=== PATIENT | male | born 1990 | race Caucasian/White ===

== ENCOUNTER 2021-08-25 18:35 | Emergency (ER) | payer OTHER, SELFPAY ==
--- NOTE | ~2021-08-25 | XR_ITS ---
EXAMINATION: XR HAND, RIGHT CLINICAL INFORMATION: Finger pain. COMPARISON: None TECHNIQUE: PA, lateral, and oblique views of the right hand. FINDINGS: The bones and soft tissues are normal. No fracture. Alignment is anatomic. Joint spaces are maintained. No erosions or soft tissue calcifications. XR/XR hand RT 2V IMPRESSION: Unremarkable right hand.
[2021-08-25 20:15] VITALS: BP 111/65; PULSE 60; RESP 18; TEMP 36.6; O2SAT 98; BMI 25.0
--- NOTE | 2021-08-25 21:07 | ED_ITS ---
HPI - Extremity Problem General Chief complaint: Extremity Problem Stated complaint: Hand pain Source: patient Mode of arrival: ambulatory Limitations: no limitations History of Present Illness HPI Narrative: 30-year-old male presents with right hand pain after punching a cement object yesterday. Does not have any bruising or swelling. MD Complaint: extremity pain Onset (ago): day(s) (1) Pain Consistency: constant Location: right and upper extremity Severity scale (1-10): 5 Quality: aching Radiation: none Relieving factors: nothing Exacerbating factors: range of motion Associated symptoms: denies other symptoms Related Data Allergies Allergy/AdvReac Type Severity Reaction Status Date / Time benztropine [From COGENTIN] Allergy Unknown UNKNOWN Unverified 06/07/20 17:46 haloperidol [From HALDOL] AdvReac Severe JAW LOCK Unverified 06/07/20 17:46 AND TONGUE SWELLING Review of Systems Review of Systems: Constitutional: No Fever, No Chills ENT/Mouth: No Ear Pain, No Hoarseness, No sore throat Eyes: No Eye Pain, No Swelling, No Redness, No Foreign Body Cardiovascular: No Chest Pain, No SOB Respiratory: No Cough, No Dyspnea Gastrointestinal: No Nausea, No Vomiting, No Diarrhea, No abdominal Pain Genitourinary: No Dysuria, No Hematuria Musculoskeletal: positive right hand pain, No Myalgias, No Joint Swelling Skin: No Skin lacerations, No rash Neuro: No Weakness, No Numbness, No Paresthesias, No Loss of Consciousness, No Dizziness, No Headache Psych: No Anxiety/Panic, No Depression Heme/Lymph: no easy bruising, no Lymphadenopathy Endocrine: No Polyuria, No Polydipsia Yes all other systems are reviewed and are negative [facility] Past Medical History Attestation statement: The following information was validated with the patient. Source: old records reviewed Medical History Asthma Social History Social History Advance Directives: No Advance Directives Information Provided: Yes Physical Exam Vital Signs: Vital Signs: Last Vital Signs Temp 98.8 F 08/25/21 22:00 Pulse 59 08/25/21 22:00 Resp 18 08/25/21 22:00 BP 116/49 L 08/25/21 22:00 Pulse Ox 97 08/25/21 22:00 BMI result Body Mass Index 25.0 Appearance: Alert. Oriented X3. No acute distress. Eyes: Pupils equal, round and reactive to light. ENT: Pharynx normal. Neck: Normal inspection. Neck supple. CVS: Normal heart rate and rhythm. Pulses normal. Respiratory: No respiratory distress. Breath sounds normal. Abdomen: Soft and nontender. Skin: Skin warm and dry. Normal skin color. Normal skin turgor. Extremities: No lower extremity edema. Full range of motion to all extremities. No swelling or bruising noted. Strength 5/5. Brisk capillary refill. Neurovascularly intact. Neuro: No motor deficit. No sensory deficit. Cranial nerves 2-12 intact. Course Course Course Narrative: 30-year-old male presents with right hand pain after punching a cement wall yesterday. No physical abnormalities, bruising or swelling noted. Has full range of motion and 5/5 strength. Patient is asking for food at this time. X-rays negative for acute findings requiring emergent intervention. Plan of care is to discharge home with supportive measures. Patient verbalized understanding of and agrees to plan of care discharge home. MDM - Extremity (Nontraumatic) MDM Narrative Medical decision making narrative: Fracture, dislocation, hematoma Medical Records Attestation: I reviewed the patient's medical records. Imaging Data Hand x-ray: Attestation: I personally reviewed and interpreted this imaging study as follows: Radiologist's impression: EXAMINATION: XR HAND, RIGHT CLINICAL INFORMATION: Finger pain.? COMPARISON: None? TECHNIQUE: PA, lateral, and oblique views of the right hand. FINDINGS: The bones and soft tissues are normal. No fracture. Alignment is anatomic. Joint spaces are maintained. No erosions or soft tissue calcifications.? XR/XR hand RT 2V IMPRESSION: Unremarkable right hand. Discharge Plan Discharge Clinical Impression: Hand injury Patient Disposition: Home, Self-Care Instructions: Hand Sprain (ED), R.I.C.E. Treatment (ED) Additional Instructions: You were evaluated for injury sustained from punching a cement object. X-rays are negative for fracture or acute findings. Please use ice, Tylenol and Motrin as needed for pain management. You should consider other alternatives to handle stress. Thank you for choosing this emergency department for evaluation. Please follow-up with primary care physician as needed. Return to the emergency department for any new, concerning, or worsening symptoms. Interventions: ED Discharge Assessment Last Done: 08/25/21 22:34 Discharge Date/Time: 08/25/21 22:36
[2021-08-25 22:00] VITALS: BP 116/49; PULSE 59; RESP 18; TEMP 37.1; O2SAT 97
--- NOTE | 2021-08-25 22:00 | PC.NURSE ---
patient a&ox3, vitals stable, pt awaiting xray results, will continue to monitor.
[2021-08-25] MEDS: Ibuprofen 600 MG TABLET PO (22:32)
--- NOTE | 2021-08-25 22:34 | PC.NURSE ---
pt medicated per order
== END 2021-08-25 22:36 | disposition home or self-care (01) ==
PROVIDERS: Emergency Provider Emergency Medicine
DX: S69.91XA Unspecified injury of right wrist, hand and finger(s), initial encounter (principal); X58.XXXA Exposure to other specified factors, initial encounter; Y93.9 Activity, unspecified; Y92.9 Unspecified place or not applicable; Y99.9 Unspecified external cause status
CPT/HCPCS: 73120; 99283; 99284

== ENCOUNTER 2021-09-05 07:30 | Emergency (ER) | payer OTHER, SELFPAY ==
--- NOTE | 2021-09-05 07:37 | ED.PSYCH ---
HPI - Psych General Chief Complaint: ETOH/Substance Use Stated Complaint: crisis Time Seen by Provider: 09/05/21 07:36 Source: patient Mode of arrival: ambulatory Limitations: no limitations History of Present Illness MD complaint: substance abuse Onset (ago): week(s) Duration: constant History of same: Yes Relieving factors: none Exacerbating factors: drug use Context: recent drug abuse Associated psychiatric symptoms: depression Associated symptoms: denies other symptoms Treatments prior to arrival: none Related Data Home Medications Medication Instructions Recorded Confirmed aripiprazole 20 mg tablet 1 tab PO QAM 09/05/21 09/05/21 lithium carbonate 300 mg tablet 1 tab PO BID 09/05/21 09/05/21 Allergies Allergy/AdvReac Type Severity Reaction Status Date / Time benztropine [From COGENTIN] Allergy Unknown UNKNOWN Unverified 06/07/20 17:46 haloperidol [From HALDOL] AdvReac Severe JAW LOCK Unverified 06/07/20 17:46 AND TONGUE SWELLING Review of Systems Review of Systems: Constitutional : No Fever, No Chills ENT/Mouth : No Ear Pain, No Nasal Congestion, No sore throat Eyes: No Eye Pain, No Swelling, No Redness Cardiovascular : No Chest Pain, No SOB Respiratory : No Cough, No Sputum, No Dyspnea Gastrointestinal : No Nausea, No Vomiting, No Diarrhea, No Hematochezia, No Melena Genitourinary : No Dysuria, No Urinary Frequency, No Hematuria Musculoskeletal : No Myalgias Skin : No Skin Lesions, No rash Neuro : No Weakness, No Numbness, No Paresthesias, No Dizziness, No Headache Psych : positive Anxiety, positive Depression, no SI/HI Heme/Lymph: No Lymphadenopathy Endocrine : No Polyuria, No Polydipsia All other systems reviewed and are negative [facility] Past Medical History Attestation statement: The following information was validated with the patient. Medical History Asthma Schizophrenia Social History Social History (Updated 09/05/21 @ 08:11 by Sakina Lewis DO) Patient Tobacco Use Status: Current everyday Tobacco user Substance Use Type: Crack/Cocaine Advance Directives: No Advance Directives Information Provided: No Physical Exam Vital Signs: Vital Signs: Last Vital Signs Temp 98.2 F 09/05/21 07:38 Pulse 86 09/05/21 07:38 Resp 18 09/05/21 07:38 BP 148/68 H 09/05/21 07:38 Pulse Ox 99 09/05/21 07:38 BMI result Body Mass Index 25.8 Appearance: Alert. Oriented X3. No acute distress. Eyes: Pupils equal, round and reactive to light. ENT: Pharynx normal. Neck: Normal inspection. Neck supple. CVS: Normal heart rate and rhythm. Pulses normal. Respiratory: No respiratory distress. Breath sounds normal. Abdomen: Soft and nontender. Skin: Skin warm and dry. Normal skin color. Extremities: No lower extremity edema. Neuro: Oriented X 3. No motor deficit. No sensory deficit. CN 2-12 intact Course Course Course Narrative: wants to go home, CARE team saw him plans to call his own mental health provider regarding his medications MDM - Psych MDM Narrative Medical decision making narrative: 30 yo male with schizophrenia using cocaine wants to go to detox - no SI. will offer recovery coaches. Lab Data Labs: Lab Results 09/05/21 09/05/21 Range/Units 08:06 09:39 Urine Opiates Screen Not Detected (Not Detect) Urine Fentanyl Screen POSITIVE H (Not Detect) Ur Barbiturates Screen Not Detected (Not Detect) Ur Phencyclidine Scrn Not Detected (Not Detect) Ur Amphetamines Screen Not Detected (Not Detect) U Benzodiazepines Scrn Not Detected (Not Detect) Urine Cocaine Screen POSITIVE H (Not Detect) U Marijuana (THC) Screen POSITIVE H (Not Detect) COVID-19 (FABIÁN) Negative (Negative) COVID-19 Clin Com See Note Discharge Plan Discharge Clinical Impression: Cocaine abuse Patient Disposition: Home, Self-Care Instructions: Cocaine Abuse (ED) Additional Instructions: return to ED for any worsening symptoms or concerns please call your doctor about your medications Prescriptions: No Action lithium carbonate 300 mg tablet 1 tab PO BID RF: 0 aripiprazole 20 mg tablet 1 tab PO QAM RF: 0
[2021-09-05 07:38] VITALS: BP 148/68; PULSE 86; RESP 18; TEMP 36.8; O2SAT 99; BMI 25.8
--- NOTE | 2021-09-05 07:53 | PC.NURSE ---
patient states has schizophrenia current with medications, smokes 1ppd cigarettes, reports cocaine and marijuana for drug use states using qday for 3 weeks, states having AH bad things (seemingly not command) periodically states feels unsafe. contracts for safety
[2021-09-05 08:32] LABS: COVID-19 Test Negative (Negative); IDNOW Serial# 9DD0AD1C
[2021-09-05] MEDS: Acetaminophen 325 MG TABLET 650 MG PO (09:30)
[2021-09-05 10:04] LABS: Amphetamine Screen Urine Not Detected (Not Detect); Barbiturates, Urine Not Detected (Not Detect); Benzodiazepines Screen Urine Not Detected (Not Detect); Cannabinoid Screen Urine POSITIVE (Not Detect); Cocaine Screen Urine POSITIVE (Not Detect); Fentanyl, urine POSITIVE (Not Detect); Opiate Screen Urine Not Detected (Not Detect); Phencyclidine Screen Urine Not Detected (Not Detect)
--- NOTE | 2021-09-05 10:51 | MHC.RECOVSUP ---
? Reason for consult:Recovery Support o Current location:[facility] o Identified substance use concern:Cocaine - Support ? Intervention: o Community resources provided o Harm reduction discussion ? Plan: o Patient to follow up with [facility] after discharge ? Additional information:Patient in denial as to whether he has a problem. He states: I just had a relapse . Pt. given community resources.
--- NOTE | 2021-09-05 11:09 | MHC.CARE ---
CARE Team met with patient in 7 after he requested be discharged, initially came to the ED seeking detox, has been using cocaine and cannabis. This morning he reported that he had a year of abstinence but relapsed due to family stress. Patient denied suicidal/homicidal ideation, plan or intention, did not appear to be experiencing psychosis, was calm and cooperative. Stated he talked to his father this morning about the drug use and said he gave him good advice about putting his children first. Patient had acknowledged that he has not taken psychiatric medications in a week, has providers through [facility] and was encouraged to reach out to the prescriber for advise about restarting the [facility] safely, patient said he feels the medication works and he wants to remain stable so would call today. Pulmonology Technician spoke with patient to offer community support services through [facility]. Provider updated
== END 2021-09-05 11:01 | disposition home or self-care (01) ==
PROVIDERS: Emergency Provider Emergency Medicine
DX: F14.10 Cocaine abuse, uncomplicated (principal); Z20.822 Contact with and (suspected) exposure to COVID-19; F20.9 Schizophrenia, unspecified; F17.200 Nicotine dependence, unspecified, uncomplicated; Z79.899 Other long term (current) drug therapy
CPT/HCPCS: 36415; 80307; 87635; 99284

== ENCOUNTER 2021-10-09 20:18 | Emergency (ER) | payer OTHER, SELFPAY ==
--- NOTE | 2021-10-09 | ECG_ITS ---
Test Reason : ANXIETY Blood Pressure : / mmHG Vent. Rate : 052 BPM Atrial Rate : 052 BPM P-R Int : 120 ms QRS Dur : 098 ms QT Int : 452 ms P-R-T Axes : 047 042 040 degrees QTc Int : 420 ms Sinus bradycardia with sinus arrhythmia Otherwise normal ECG When compared with ECG of 13-MAR-2011 12:36, No significant change was found Referred By: Generic ED Physician Electronically Signed By:Hansel Schuster
--- NOTE | ~2021-10-09 | XR_ITS ---
EXAMINATION: XR CHEST CLINICAL INFORMATION: Cough, shortness of breath, wheezing. COMPARISON: Chest radiograph dated from 03/12/2011. TECHNIQUE: AP view of the chest was obtained. FINDINGS: Normal appearance of the cardiomediastinal silhouette. Adequately expanded lungs without focal airspace opacities, pleural effusions or pneumothorax. No acute osseous abnormalities. XR/XR chest 1V IMPRESSION: No acute cardiopulmonary findings.
[2021-10-09 20:26] VITALS: BP 114/70; PULSE 70; O2SAT 99
[2021-10-09 20:43] VITALS: BP 123/72; PULSE 84; RESP 16; TEMP 36.7; O2SAT 100; BMI 25.0
[2021-10-09] MEDS: Albuterol Sulfate 90 MCG 8 GM INHALER 4 PUFF INHALE (21:24)
[2021-10-09 21:37] LABS: MANUAL DIFF FLAG NO
[2021-10-09 21:41] LABS: Basophils Percent Auto 0.2 % (0-2); Eosinophils Percent Auto 0.2 % (0-4); Hemoglobin 13.4 g/dl (14.0-18.0); Imm Gran Abs Auto 0.02 X10*3/uL (0.00-0.03); Imm Gran Pct Auto 0.4 % (0.0-0.4); Lymphocytes Absolute Auto 1.1 X10*3/uL (1.2-4.9); Lymphocytes Percent Auto 22.9 % (20-40); Mean Corpuscular HGB Conc 33.5 g/dl (31.0-36.0); Mean Corpuscular Hemoglobin 31.5 pg (27.0-33.0); Mean Corpuscular Volume 94.1 fL (80.0-98.0); Mean Platelet Volume 9.6 fL (9.4-12.4); Monocytes Absolute Auto 0.6 X10*3/uL (0.1-1.2); Monocytes Percent Auto 13.1 % (2-11); Neutrophils Percent Auto 63.2 % (45-73); Platelet Count 166 X10*3/uL (160-400); Red Blood Count 4.25 X10*6/uL (4.60-5.80); Red Cell Distribution Width 13.2 % (11.0-16.0); White Blood Count 4.7 X10*3/uL (4.8-10.8)
--- NOTE | 2021-10-09 21:42 | ED.GENADULT ---
HPI - General Adult General Chief complaint: Anxiety Stated complaint: HEADACHE AND CHEST PAIN Time Seen by Provider: 10/09/21 20:47 Source: patient and EMS Mode of arrival: EMS History of Present Illness HPI narrative: 30-year-old male with a past medical history of asthma, schizophrenia, BIBA and police custody s/p having anxiety attack in lockup per EMS, patient reports increased anxiety and CP/ SOB associated with anxiety when PD was arresting him. Reports symptomatic improvement at present with mild residual symptoms now. Reports similar symptoms in the past. Also admits to COVID-19 exposure, productive cough, and wheezing. States ran out of asthma medications 6 months ago. Denies fever, chills, abdominal pain, nausea/ vomiting, pedal edema Onset (ago): hour(s) Related Data Home Medications Medication Instructions Recorded Confirmed aripiprazole 20 mg tablet 1 tab PO QAM 09/05/21 09/05/21 lithium carbonate 300 mg tablet 1 tab PO BID 09/05/21 09/05/21 Previous Rx's Medication Instructions Recorded prednisone 20 mg tablet 40 mg PO DAILY 4 Days #8 tab 10/09/21 Allergies Allergy/AdvReac Type Severity Reaction Status Date / Time benztropine [From COGENTIN] Allergy Unknown UNKNOWN Verified 10/09/21 21:24 haloperidol [From HALDOL] AdvReac Severe JAW LOCK Verified 10/09/21 21:24 AND TONGUE SWELLING Review of Systems Review of Systems: Constitutional: No Fever, No Chills, No Fatigue, No Malaise ENT/Mouth: No Ear Pain, No Nasal Congestion, No sore throat, No Rhinorrhea, No Swallowing Difficulty Eyes: No Eye Pain, No Swelling, No Redness, Cardiovascular: + Chest Pain, + SOB, No Dyspnea on Exertion, No Edema Respiratory: + Cough, + Sputum, + Wheezing, No Smoke Exposure, No Dyspnea Gastrointestinal: No Nausea, No Vomiting, No Abdominal pain Genitourinary: No Dysuria, No Hesitancy Musculoskeletal: No joint pain, No Myalgias, No Joint Swelling Skin: No Skin Lesions, No rash Neuro: No Weakness, No Dizziness, No Headache Psych: + Anxiety/Panic, No Depression, No SI/HI/AH/VH, No Social Issues Yes all other systems are reviewed and are negative PMFSH Past Medical History Attestation statement: The following information was validated with the patient. Medical History Asthma Schizophrenia Social History Social History Patient Tobacco Use Status: Current everyday Tobacco user Substance Use Type: Crack/Cocaine Advance Directives: No Advance Directives Information Provided: Yes Physical Exam Vital Signs: Vital Signs: Last Vital Signs Temp 98.1 F 10/09/21 20:43 Pulse 87 10/09/21 22:00 Resp 18 10/09/21 22:00 BP 112/57 L 10/09/21 22:00 Pulse Ox 96 10/09/21 22:00 BMI result Body Mass Index 25.0 Const: General: cooperative, healthy appearing, no acute distress, alert and awake Orientation/consciousness: patient oriented x3 Limitations: no limitations HENMT: Head: Yes normal to inspection and Yes atraumatic Ears: hearing grossly normal bilaterally General nose exam: Normal external nose present Face and sinus: Yes normal facial exam Eyes: General: appearance normal, both eyes and all related structures EOM: EOMs intact bilaterally Neck: Neck: Yes normal visual inspection and Yes no meningeal signs Resp: Effort & Inspection: normal respiratory effort Auscultation: clear to auscultation bilaterally and wheezes expiratory wheezes and throughout Cardio: Rate: regular rate Heart sounds: S1 normal heart sound present and S2 normal heart sound present GI: Inspection: Yes normal to inspection Palpation (GI): Soft to palpation, nontender, no guarding and not rigid Skin: Rashes: no rashes Wounds: no wounds Neuro: General: patient oriented x3 and no meningeal signs Gait exam (Neuro): Normal gait present Extrem: General: Yes normal to inspection, Yes no pedal edema and Yes no calf tenderness Course Course Course Narrative: - labs unremarkable. Troponin negative. COVID-19 negative XR chest 1V IMPRESSION: No acute cardiopulmonary findings. -- On re-evaluation lungs with better air movement, slight residual wheeze to left lower lung field. Patient is safe for discharge at this time, was provided with albuterol inhaler in the ED, and given 1st dose of p.o. prednisone. Discussed worrisome signs and symptoms and strict return precautions that need a close follow-up with PCP. He verbalized understanding Medical Decision Making MDM Narrative Medical decision making narrative: 30-year-old male with a past medical history of asthma, schizophrenia, BIBA and police custody s/p having anxiety attack in lockup per EMS, patient reports increased anxiety and CP/ SOB associated with anxiety when PD was arresting him. Also admits to COVID-19 exposure, productive cough, and wheezing. On exam vital signs stable, NAD, nontoxic appearing, lungs with diffuse expiratory wheeze, good air movement, abdomen soft-nontender, no pedal edema. Concern for anxiety reaction vs asthma exacerbation vs COVID-19/viral syndrome.. Rule out pneumonia. Unlikely PE/ ACS Plan: EKG, labs, CXR, COVID-19 testing, [facility] Medical Records Medical records reviewed: Yes I reviewed the patient's medical records. Lab Data Lab results reviewed: Yes I reviewed the patient's lab results. Result diagrams: 10/09/21 21:31 10/09/21 21:31 Labs: Lab Results 10/09/21 10/09/21 10/09/21 Range/Units 21:31 21:31 21:31 WBC 4.7 L (4.8-10.8) X10*3/uL RBC 4.25 L (4.60-5.80) X10*6/uL Hgb 13.4 L (14.0-18.0) g/dl Hct 40.0 L (42.0-52.0) % MCV 94.1 (80.0-98.0) fL MCH 31.5 (27.0-33.0) pg MCHC 33.5 (31.0-36.0) g/dl RDW 13.2 (11.0-16.0) % Plt Count 166 (160-400) X10*3/uL MPV 9.6 (9.4-12.4) fL Immature Gran % (Auto) 0.4 (0.0-0.4) % Neut % (Auto) 63.2 (45-73) % Lymph % (Auto) 22.9 (20-40) % [place] % (Auto) 13.1 H (2-11) % Eos % (Auto) 0.2 (0-4) % Baso % (Auto) 0.2 (0-2) % Lymph # (Auto) 1.1 L (1.2-4.9) X10*3/uL [place] # (Auto) 0.6 (0.1-1.2) X10*3/uL Eos # (Auto) 0.0 (0.0-0.4) X10*3/uL Baso # (Auto) 0.0 (0.0-0.2) X10*3/uL Abs Immat Gran (auto) 0.02 (0.00-0.03) X10*3/uL Absolute Neuts (auto) 3.0 (2.0-8.3) x10*3/uL Absolute Nucleated RBC 0.000 (0.0-0.012) X10*3/uL Nucleated RBC % (auto) 0.0 (0.0-0.2) /100WBC Sodium 140 (135-145) mmol/L Potassium 4.3 (3.3-5.1) mmol/L Chloride 106 (96-108) mmol/L Carbon Dioxide 23 (22-29) mmol/L Anion Gap 15 (12-20) BUN 13 (9-16) mg/dL Creatinine 0.91 (0.5-1.4) mg/dL Estim Creat Clear Calc 116.9 Estimated GFR > 60 Random Glucose 97 (60-115) mg/dL Calcium 9.0 (8.4-10.2) mg/dL Troponin I High Sens (<3.5-35.0) ng/L COVID-19 (FABIÁN) Negative (Negative) COVID-19 Clin Com See Note 10/09/21 Range/Units 21:31 WBC (4.8-10.8) X10*3/uL RBC (4.60-5.80) X10*6/uL Hgb (14.0-18.0) g/dl Hct (42.0-52.0) % MCV (80.0-98.0) fL MCH (27.0-33.0) pg MCHC (31.0-36.0) g/dl RDW (11.0-16.0) % Plt Count (160-400) X10*3/uL MPV (9.4-12.4) fL Immature Gran % (Auto) (0.0-0.4) % Neut % (Auto) (45-73) % Lymph % (Auto) (20-40) % [place] % (Auto) (2-11) % Eos % (Auto) (0-4) % Baso % (Auto) (0-2) % Lymph # (Auto) (1.2-4.9) X10*3/uL [place] # (Auto) (0.1-1.2) X10*3/uL Eos # (Auto) (0.0-0.4) X10*3/uL Baso # (Auto) (0.0-0.2) X10*3/uL Abs Immat Gran (auto) (0.00-0.03) X10*3/uL Absolute Neuts (auto) (2.0-8.3) x10*3/uL Absolute Nucleated RBC (0.0-0.012) X10*3/uL Nucleated RBC % (auto) (0.0-0.2) /100WBC Sodium (135-145) mmol/L Potassium (3.3-5.1) mmol/L Chloride (96-108) mmol/L Carbon Dioxide (22-29) mmol/L Anion Gap (12-20) BUN (9-16) mg/dL Creatinine (0.5-1.4) mg/dL Estim Creat Clear Calc Estimated GFR Random Glucose (60-115) mg/dL Calcium (8.4-10.2) mg/dL Troponin I High Sens 4.4 (<3.5-35.0) ng/L COVID-19 (FABIÁN) (Negative) COVID-19 Clin Com ECG Data Attestation: I personally reviewed and interpreted this ECG as follows: Interpretation: EKG sinus Eleuterio at a rate of 52. MO interval 120. QTC 420. peaked T waves. No STEMI Discharge Plan Discharge Clinical Impression: Acute anxiety Asthma Qualifiers: Asthma severity: unspecified severity Asthma persistence: unspecified Asthma complication type: with acute exacerbation Qualified Code(s): J45.901 - Unspecified asthma with (acute) exacerbation Instructions: Asthma (ED), Anxiety (ED) Additional Instructions: your chest x-ray is unremarkable. You tested negative for COVID-19. your blood work is reassuring. you are having an asthma exacerbation. Prednisone as a steroid please take as prescribed Continue to use albuterol inhaler at home for your asthma. It is important that he follow up with her primary care doctor for refills of your medications. If her symptoms persist or worsen, constant worsening shortness of breath, chest pain, fever please turn to the ED Prescriptions: New prednisone 20 mg tablet 40 mg PO DAILY 4 Days Qty: 8 RF: 0 No Action lithium carbonate 300 mg tablet 1 tab PO BID RF: 0 aripiprazole 20 mg tablet 1 tab PO QAM RF: 0 Referrals: Physician,Unknown J [Primary Care Provider] - 2 days
[2021-10-09 21:52] LABS: COVID-19 Test Negative (Negative)
[2021-10-09 21:55] LABS: Anion Gap 15 (12-20); Blood Urea Nitrogen 13 mg/dL (9-16); Carbon Dioxide 23 mmol/L (22-29); Chloride 106 mmol/L (96-108); Creatinine Clr Calc Pharmacy 116.9; Estimated Glomerular Filt Rate > 60; Glucose Random 97 mg/dL (60-115); Potassium 4.3 mmol/L (3.3-5.1); Sodium 140 mmol/L (135-145)
[2021-10-09 22:00] VITALS: BP 112/57; PULSE 87; RESP 18; O2SAT 96
[2021-10-09 22:01] LABS: Troponin-I High Sensitivity 4.4 ng/L (<3.5-35.0)
[2021-10-09] MEDS: Albuterol/Iprat 2.5/0.5MG 3 ML AMPUL.NEB INHALE (22:19)
[2021-10-09] MEDS: predniSONE 20 MG TABLET 40 MG PO (22:45)
== END 2021-10-09 22:53 | disposition home or self-care (01) ==
PROVIDERS: Physician Assistant; Emergency Provider Internal Medicine
DX: F41.1 Generalized anxiety disorder (principal); F43.0 Acute stress reaction; J45.901 Unspecified asthma with (acute) exacerbation; R51.9 Headache, unspecified; F14.10 Cocaine abuse, uncomplicated; Z20.822 Contact with and (suspected) exposure to COVID-19; Z79.899 Other long term (current) drug therapy
CPT/HCPCS: 36415; 71045; 80048; 84484; 85025; 87635; 93005; 99284

== ENCOUNTER 2021-11-22 04:02 | Emergency (ER) | payer OTHER, SELFPAY ==
[2021-11-22 04:20] VITALS: BP 137/78; PULSE 95; RESP 18; TEMP 36.3; O2SAT 99; BMI 25.0
--- NOTE | 2021-11-22 04:26 | ED_ITS ---
HPI - General Adult General Chief complaint: General Medical Stated complaint: unknown - freezing Time Seen by Provider: 11/22/21 04:25 Source: patient and historical interpreter Mode of arrival: ambulatory History of Present Illness HPI narrative: Bilateral leg pain since 11/18/2021. Patient states burning sensation to bilateral lower extremities. He states that this pain is related to the cold and having to walk long distances because he is homeless. Related Data Home Medications Medication Instructions Recorded Confirmed aripiprazole 20 mg tablet 1 tab PO QAM 09/05/21 09/05/21 lithium carbonate 300 mg tablet 1 tab PO BID 09/05/21 09/05/21 Previous Rx's Medication Instructions Recorded prednisone 20 mg tablet 40 mg PO DAILY 4 Days #8 tab 10/09/21 Allergies Allergy/AdvReac Type Severity Reaction Status Date / Time benztropine [From COGENTIN] Allergy Unknown UNKNOWN Verified 11/22/21 04:20 haloperidol [From HALDOL] AdvReac Severe JAW LOCK Verified 11/22/21 04:20 AND TONGUE SWELLING Review of Systems Review of Systems: Pertinent positives and negatives as stated in HPI 10 point review of systems is otherwise negative. PMFSH Past Medical History Source: nursing notes reviewed Medical History Asthma Schizophrenia Social History Social History Patient Tobacco Use Status: Current everyday Tobacco user Substance Use Type: Crack/Cocaine Advance Directives: No Advance Directives Information Provided: Yes Physical Exam ED Vital Signs: Vital Signs - 24 hr 11/22/21 04:20 Temperature 97.4 F Pulse Rate 95 Respiratory Rate 18 Blood Pressure 137/78 Pulse Oximetry 99 BMI result Body Mass Index 25.0 Abbreviated due to patient deciding to leave and refusing to cooperate with further evaluation. VITAL SIGNS: Reviewed. GENERAL: Well developed, well nourished, in mild distress, restless, agitated HEAD: Normocephalic/atraumatic EYES: PERRLA, EOMI LUNGS: No tachypnea SpO2<99> CARDIOVASCULAR: Regular rate and rhythm without noted murmurs, no JVD or lower extremity edema. ABDOMEN: Soft, non-tender, non-distended with bowel sounds. MUSCULOSKELETAL: No tenderness, deformities, or effusions noted on gross insp ection. EXTREMITIES: No cyanosis, clubbing or edema, bilateral feet are warm with good capillary refill and palpable DP/PT; there is a noted ecchymotic area to the right posterior calf SKIN: Inspection of the skin reveals no rashes NEUROLOGIC: Alert and oriented x 4. Strength and sensation to light touch were grossly intact x 4. Course Course Course Narrative: 30-year-old male with history and clinical presentation consistent with burning sensation into all extremities no evidence of acute [place] bite, patient oxygenating well on room air and no noted tachypnea. Suspect patient is currently under the influence of substances and had reported the use of cocaine prior to arrival. Patient decided that he wanted to leave and did not wish to be further evaluated. Discharge Plan Discharge Clinical Impression: Bilateral leg paresthesia Patient Disposition: Home, Self-Care Instructions: Paresthesia (ED) Additional Instructions: Follow-up with your primary care provider. Return to the ER for worsening symptoms. Prescriptions: No Action lithium carbonate 300 mg tablet 1 tab PO BID 0RF aripiprazole 20 mg tablet 1 tab PO QAM 0RF prednisone 20 mg tablet 40 mg PO DAILY 4 Days Qty: 8 0RF Interventions: ED Discharge Assessment Last Done: 11/22/21 05:22 Discharge Date/Time: 11/22/21 05:35
--- NOTE | 2021-11-22 05:26 | PC.NURSE ---
pt yelling and threatening staff. pt turned to charge nurse Tulio stating you are so ugly just go fuck yourself pt continues to yell and threaten staff yelling I hate all white people pt is being escorted out by security.
== END 2021-11-22 05:35 | disposition home or self-care (01) ==
LOC: HO.ED 05:11
PROVIDERS: Emergency Provider Student in an Organized Health Care Education/Training Program
DX: R20.2 Paresthesia of skin (principal); F14.90 Cocaine use, unspecified, uncomplicated; F17.200 Nicotine dependence, unspecified, uncomplicated; Z71.6 Tobacco abuse counseling; Z79.899 Other long term (current) drug therapy
CPT/HCPCS: 99282; 99283

== ENCOUNTER 2021-11-25 01:54 | Emergency (ER) | payer OTHER, SELFPAY ==
[2021-11-25 02:02] VITALS: BP 158/82; PULSE 72; RESP 16; TEMP 36.9; O2SAT 96; BMI 24.3
[2021-11-25 02:34] LABS: Basophils Percent Auto 0.3 % (0-2); Eosinophils Percent Auto 0.1 % (0-4); Hematocrit 38.3 % (42.0-52.0); Hemoglobin 12.8 g/dl (14.0-18.0); Imm Gran Abs Auto 0.02 X10*3/uL (0.00-0.03); Imm Gran Pct Auto 0.3 % (0.0-0.4); Lymphocytes Absolute Auto 1.4 X10*3/uL (1.2-4.9); Lymphocytes Percent Auto 20.4 % (20-40); MANUAL DIFF FLAG NO; Mean Corpuscular HGB Conc 33.4 g/dl (31.0-36.0); Mean Corpuscular Hemoglobin 31.3 pg (27.0-33.0); Mean Corpuscular Volume 93.6 fL (80.0-98.0); Monocytes Absolute Auto 0.5 X10*3/uL (0.1-1.2); Monocytes Percent Auto 7.1 % (2-11); Neutrophils Percent Auto 71.8 % (45-73); Platelet Count 317 X10*3/uL (160-400); Red Blood Count 4.09 X10*6/uL (4.60-5.80); Red Cell Distribution Width 13.5 % (11.0-16.0); White Blood Count 6.9 X10*3/uL (4.8-10.8)
[2021-11-25 02:52] LABS: Ethanol < 10 mg/dL
[2021-11-25 02:53] LABS: COVID-19 Test Negative (Negative)
[2021-11-25 02:54] LABS: Anion Gap 14 (12-20); Blood Urea Nitrogen 12 mg/dL (9-16); Calcium 9.1 mg/dL (8.4-10.2); Carbon Dioxide 27 mmol/L (22-29); Chloride 101 mmol/L (96-108); Creatinine Clr Calc Pharmacy 137.4; Estimated Glomerular Filt Rate > 60; Glucose Random 96 mg/dL (60-115); Potassium 3.9 mmol/L (3.3-5.1); Sodium 138 mmol/L (135-145)
--- NOTE | 2021-11-25 02:56 | ED_ITS ---
HPI - Psych General Chief Complaint: Psychiatric Symptoms Stated Complaint: Crisis Time Seen by Provider: 11/25/21 02:56 Source: patient Mode of arrival: EMS History of Present Illness HPI Narrative: 30-year-old male with history anxiety, cocaine abuse who presents via EMS after being asks to leave the [facility] due to medication noncompliance and alcohol use. Patient states that he feels unsafe . Related Data Home Medications Medication Instructions Recorded Confirmed aripiprazole 20 mg tablet 1 tab PO QAM 09/05/21 11/25/21 lithium carbonate 300 mg tablet 1 tab PO BID 09/05/21 11/25/21 Allergies Allergy/AdvReac Type Severity Reaction Status Date / Time benztropine [From COGENTIN] Allergy Unknown UNKNOWN Verified 11/22/21 04:20 haloperidol [From HALDOL] AdvReac Severe JAW LOCK Verified 11/22/21 04:20 AND TONGUE SWELLING Review of Systems Review of Systems: Pertinent positives and negatives as stated in HPI 10 poi nt review of systems otherwise negative. PMFSH Past Medical History Source: nursing notes reviewed Medical History Asthma Schizophrenia Social History Social History Patient Tobacco Use Status: Current everyday Tobacco user Substance Use Type: Crack/Cocaine Advance Directives: No Advance Directives Information Provided: No Physical Exam Vital Signs: Vital Signs: Last Vital Signs Temp 98.5 F 11/25/21 02:02 Pulse 72 11/25/21 02:02 Resp 16 11/25/21 02:02 BP 158/82 H 11/25/21 02:02 Pulse Ox 96 11/25/21 02:02 BMI result Body Mass Index 24.3 VITAL SIGNS: Reviewed. GENERAL: Well developed, well nourished, in no acute distress. HEAD: Normocephalic/atraumatic EYES: PERRLA, EOMI OROPHARYNX: no oral lesions noted, posterior pharynx clear LUNGS: Normal breath sounds. No adventitious sounds or accessory muscle use. SpO2<96> CARDIOVASCULAR: Regular rate and rhythm without noted murmurs ABDOMEN: Soft, non-tender, non-distended with bowel sounds. NEUROLOGIC: Alert and oriented x 4. Strength and sensation to light touch were grossly intact x 4 , cranial nerves 2-12 are grossly intact. Course Course Course Narrative: 30-year-old male with history and clinical presentation consistent with polysubstance abuse and use. Patient is otherwise medically cleared for further evaluation by the behavioral team. Reevaluation(s) Reevaluation #1: Patient placed in physician observation because the patient needed more time for evaluation by the behavioral team. At the time observation was started the patient's vital signs were stable, patient is arousable and oriented, neuro: Nonfocal, CV RRR, lungs clear Time: 08:50 MDM - Psych Lab Data Result diagrams: 11/25/21 02:27 11/25/21 02:27 Labs: Lab Results 11/25/21 11/25/21 11/25/21 Range/Units 02:12 02:27 02:27 WBC (4.8-10.8) X10*3/uL RBC (4.60-5.80) X10*6/uL Hgb (14.0-18.0) g/dl Hct (42.0-52.0) % MCV (80.0-98.0) fL MCH (27.0-33.0) pg MCHC (31.0-36.0) g/dl RDW (11.0-16.0) % Plt Count (160-400) X10*3/uL MPV (9.4-12.4) fL Immature Gran % (Auto) (0.0-0.4) % Neut % (Auto) (45-73) % Lymph % (Auto) (20-40) % Hettinger % (Auto) (2-11) % Eos % (Auto) (0-4) % Baso % (Auto) (0-2) % Lymph # (Auto) (1.2-4.9) X10*3/uL [place]ting[place] # (Auto) (0.1-1.2) X10*3/uL Eos # (Auto) (0.0-0.4) X10*3/uL Baso # (Auto) (0.0-0.2) X10*3/uL Abs Immat Gran (auto) (0.00-0.03) X10*3/uL Absolute Neuts (auto) (2.0-8.3) x10*3/uL Absolute Nucleated RBC (0.0-0.012) X10*3/uL Nucleated RBC % (auto) (0.0-0.2) /100WBC Sodium (135-145) mmol/L Potassium (3.3-5.1) mmol/L Chloride (96-108) mmol/L Carbon Dioxide (22-29) mmol/L Anion Gap (12-20) BUN (9-16) mg/dL Creatinine (0.5-1.4) mg/dL Estim Creat Clear Calc Estimated GFR Random Glucose (60-115) mg/dL Calcium (8.4-10.2) mg/dL Urine Opiates Screen (Not Detect) Urine Fentanyl Screen (Not Detect) Ur Barbiturates Screen (Not Detect) Ur Phencyclidine Scrn (Not Detect) Ur Amphetamines Screen (Not Detect) U Benzodiazepines Scrn (Not Detect) [place] < 0.10 L (0.60-1.20) mmol/L Urine Cocaine Screen (Not Detect) U Marijuana (THC) Screen (Not Detect) Ethyl Alcohol < 10 mg/dL COVID-19 (FABIÁN) Negative (Negative) COVID-19 Clin Com See Note 11/25/21 11/25/21 11/25/21 Range/Units 02:27 02:27 04:05 WBC 6.9 (4.8-10.8) X10*3/uL RBC 4.09 L (4.60-5.80) X10*6/uL Hgb 12.8 L (14.0-18.0) g/dl Hct 38.3 L (42.0-52.0) % MCV 93.6 (80.0-98.0) fL MCH 31.3 (27.0-33.0) pg MCHC 33.4 (31.0-36.0) g/dl RDW 13.5 (11.0-16.0) % Plt Count 317 D (160-400) X10*3/uL MPV 9.0 L (9.4-12.4) fL Immature Gran % (Auto) 0.3 (0.0-0.4) % Neut % (Auto) 71.8 (45-73) % Lymph % (Auto) 20.4 (20-40) % [place] % (Auto) 7.1 (2-11) % Eos % (Auto) 0.1 (0-4) % Baso % (Auto) 0.3 (0-2) % Lymph # (Auto) 1.4 (1.2-4.9) X10*3/uL [place] # (Auto) 0.5 (0.1-1.2) X10*3/uL Eos # (Auto) 0.0 (0.0-0.4) X10*3/uL Baso # (Auto) 0.0 (0.0-0.2) X10*3/uL Abs Immat Gran (auto) 0.02 (0.00-0.03) X10*3/uL Absolute Neuts (auto) 5.0 (2.0-8.3) x10*3/uL Absolute Nucleated RBC 0.000 (0.0-0.012) X10*3/uL Nucleated RBC % (auto) 0.0 (0.0-0.2) /100WBC Sodium 138 (135-145) mmol/L Potassium 3.9 (3.3-5.1) mmol/L Chloride 101 (96-108) mmol/L Carbon Dioxide 27 (22-29) mmol/L Anion Gap 14 (12-20) BUN 12 (9-16) mg/dL Creatinine 0.80 (0.5-1.4) mg/dL Estim Creat Clear Calc 137.4 Estimated GFR > 60 Random Glucose 96 (60-115) mg/dL Calcium 9.1 (8.4-10.2) mg/dL Urine Opiates Screen Not Detected (Not Detect) Urine Fentanyl Screen Not Detected (Not Detect) Ur Barbiturates Screen Not Detected (Not Detect) Ur Phencyclidine Scrn Not Detected (Not Detect) Ur Amphetamines Screen Not Detected (Not Detect) U Benzodiazepines Scrn Not Detected (Not Detect) [place] (0.60-1.20) mmol/L Urine Cocaine Screen POSITIVE H (Not Detect) U Marijuana (THC) Screen POSITIVE H (Not Detect) Ethyl Alcohol mg/dL COVID-19 (FABIÁN) (Negative) COVID-19 Clin Com Discharge Plan Discharge Clinical Impression: Depression, Anxiety Patient Disposition: Still a Patient Prescriptions: No Action lithium carbonate 300 mg tablet 1 tab PO BID 0RF aripiprazole 20 mg tablet 1 tab PO QAM 0RF
[2021-11-25 03:03] LABS: Lithium < 0.10 mmol/L (0.60-1.20)
[2021-11-25 04:32] LABS: Amphetamine Screen Urine Not Detected (Not Detect); Barbiturates, Urine Not Detected (Not Detect); Benzodiazepines Screen Urine Not Detected (Not Detect); Cannabinoid Screen Urine POSITIVE (Not Detect); Cocaine Screen Urine POSITIVE (Not Detect); Fentanyl, urine Not Detected (Not Detect); Opiate Screen Urine Not Detected (Not Detect); Phencyclidine Screen Urine Not Detected (Not Detect)
--- NOTE | 2021-11-25 06:35 | PC.NURSE ---
Patient slept through the night, no distress observed/reported, behavior appropriate, med rec completed/pending provider's approval, behavior appropriate and non concerning at this time, [facility] referral completed/confirmed pending ETA, will continue to monitor.
--- NOTE | 2021-11-25 11:15 | MHC.CARE ---
Patient asking to be discharged, CARE Team met with him for a risk assessment. He stated that he is not suicidal and denied saying so last night, reported he was cold and needed a place to go and added that if he did need any help he would ask for it. [place] level was .10 and patient acknowledged that he missed doses for the last two days and his prescription is at [facility], has not picked it up yet. At this time patient does not appear to be in a crisis, in agreement to meet with Recovery Team for additional resources. Call to Receiving Room Clerk Pedro Koch ([phone]), he has heard from patient and was planning to come to the ED today to meet with him. Advised that patient is being discharged, SW will come rock picker patient in one hour and bring him to get the prescription. ED provider, Akil Anguiano updated and in agreement with plan to discharge.
--- NOTE | 2021-11-25 12:07 | MHC.RECOVSUP ---
Recovery Support note: Patient is a 30 year old [place]ian speaking male who was referred to this scenario writer by the CARE Team. This scenario writer met with patient to discuss his substance use and recovery supports. Patient reports he left [facility] in [place] on 11/06/21. Patient reports he last used cocaine a couple days ago and that he uses about once a month on average. Patient reports a desire to stop using entirely. Discussed recovery supports with patient. Patient is interested in going to meetings and getting connected with a recovery room rn. This scenario writer will refer patient to a recovery room rn for ongoing recovery support after discharge. Discussed case with CARE Team and ED provider.
--- NOTE | 2021-11-26 12:00 | MHC.CARE ---
CARE Team attempted to contact pt for the purpose of conducting a follow up call.? The phone number in pt?s chart was not a working number.? CARE Team contacted pt?s social media marketer Mr. Pedro Koch who stated he did not have pt?s number and that pt is ?Constantly changing numbers.?? CARE Team attempts to contact pt?s Father Garrett but are unsuccessful in doing so.
== END 2021-11-25 12:10 | disposition home or self-care (01) ==
PROVIDERS: Emergency Provider Student in an Organized Health Care Education/Training Program
DX: F32.A Depression, unspecified (principal); F41.9 Anxiety disorder, unspecified; F14.10 Cocaine abuse, uncomplicated; F12.10 Cannabis abuse, uncomplicated; F20.9 Schizophrenia, unspecified; F17.200 Nicotine dependence, unspecified, uncomplicated; Z79.899 Other long term (current) drug therapy; Z20.822 Contact with and (suspected) exposure to COVID-19
CPT/HCPCS: 36415; 80048; 80178; 80307; 82077; 85025; 87635; 99284

== ENCOUNTER 2021-11-28 02:47 | Emergency (ER) | payer OTHER, SELFPAY ==
[2021-11-28 02:54] VITALS: BP 142/73; PULSE 79; RESP 18; TEMP 36.8; O2SAT 97; BMI 25.0
[2021-11-28 03:12] VITALS: BP 137/77; PULSE 105; RESP 14; TEMP 37.1; O2SAT 97
--- NOTE | 2021-11-28 03:47 | ED_ITS ---
HPI - General Adult General Chief complaint: Extremity Problem Stated complaint: R leg pain Time Seen by Provider: 11/28/21 03:44 Source: patient Mode of arrival: ambulatory Limitations: no limitations History of Present Illness HPI narrative: 30-year-old male history of polysubstance abuse and alcohol abuse, patient stated that he is homeless no place to go came in for bilateral leg pain. Patient stated he has been walking in the street in the cold weather. Patient declined chest pain or shortness of breath, patient appear under influence of drugs in the ED. Unable to obtain full history from the patient. Related Data Home Medications Medication Instructions Recorded Confirmed aripiprazole 20 mg tablet 1 tab PO QAM 09/05/21 11/28/21 lithium carbonate 300 mg tablet 1 tab PO BID 09/05/21 11/28/21 Allergies Allergy/AdvReac Type Severity Reaction Status Date / Time benztropine [From COGENTIN] Allergy Unknown UNKNOWN Verified 11/22/21 04:20 haloperidol [From HALDOL] AdvReac Severe JAW LOCK Verified 11/22/21 04:20 AND TONGUE SWELLING Review of Systems Review of Systems: All other systems are reviewed and are negative Constitutional: Reports as per HPI and Reports no additional constitutional co mplaints Eyes: Reports as per HPI and Reports no additional eye complaints Reports system reviewed and no additional complaints, except as documented Cardiovascular: Reports as per HPI and Reports no additional cardiovascular complaints Respiratory: Reports as per HPI and Reports no additional respiratory complaints Gastrointestinal: Reports as per HPI and Reports no additional gastrointestinal complaints Genitourinary: Reports no additional female genitourinary complaints Musculoskeletal: Reports no additional musculoskeletal complaints Skin/Breast: Reports system reviewed and no additional complaints, except as docu Psychiatric: Reports no additional psychiatric complaints Endocrine: Reports no additional endocrine complaints Hematologic/Lymphatic: Reports no additional hematologic/lymphatic complaints Allergic/Immunologic: Reports no additional allergic/immunologic complaints Reports system reviewed and no additional complaints, except as documented and Reports Abnormal speech present [facility] Past Medical History Medical History Asthma Schizophrenia Social History Social History Alcohol intake: unknown Patient Tobacco Use Status: Tobacco use Unknown Use of substances other than those prescribed or required for medical reasons: Unknown Substance Use Type: Crack/Cocaine Advance Directives: No Physical Exam ED Vital Signs: Vital Signs - 24 hr 11/28/21 02:54 11/28/21 03:12 Temperature 98.3 F 98.7 F Pulse Rate 79 105 H Respiratory Rate 18 14 Blood Pressure 142/73 H 137/77 Pulse Oximetry 97 97 BMI result Body Mass Index 25.0 Vital signs have been reviewed as appeared to be correct. Blood pressure normal. Heart rate normal. Respiration rate normal. Temperature normal. Oxygen saturation normal. Appearance: Disheveled, no acute distress. Head: Normal external exam. Normocephalic. Atraumatic. No Fajardo signs noted. No raccoon eyes noted Eyes: PERRLA. EOMI. Conjunctiva and sclera normal. Eyelids normal. ENT: TM's Normal. Pharynx normal. Uvula midline. Moist mucous membranes. No trismus noted. No drooling noted. No muffled voice noted. Neck: Normal inspection. Neck supple. FROM. No adenopathy. Thyroid Normal. No meningeal signs. No neck mass noted. CVS: Normal heart rate and rhythm. Heart sound normal. No murmurs noted. Pulses normal throughout. Respiratory: No respiratory distress. Painless inspiration. Breath sounds normal. No wheezes/rales/rhonchi noted. Chest nontender. No accessory muscle usage noted or decreased air movement noted. Abdomen: Soft and nontender. Bowel sounds normal in all 4 quadrants. No distention noted. No organomegaly noted. No visible injury noted. Back: No CVA tenderness. Full range of motion noted. Skin: Skin warm and dry. Normal skin color. Normal skin turgor. No rashes/lesions/lacerations noted. Extremities: No lower extremity edema. Extremities exhibit normal range of motion. Extremities nontender. Neuro: Oriented X 3. Cranial nerve exam: II-XII are grossly intact No motor deficit. No sensory deficit. Reflexes normal. Course Course Course Narrative: Assessment and plan. 30-year-old male with history of polysubstance abuse and alcohol abuse, as per patient currently is homeless patient mainly came in for bilateral lower extremities pain patient stated he has been walking in the street as he is homeless, patient currently declined any HI or SI but appears to be tired and wanted to sleep. Patient had few ED visit in the past couple days likely because patient has no place to go at night especially when it is cold, patient also been evaluated by care team and was cleared to be discharged out of the hospital. Patient has unremarkable labs, CPK is unremarkable, D-dimer is also unremarkable , no apparent infectious process going on in the lower extremities. Patient will be safe to discharge home in the a.m. Medical Decision Making Medical Records Medical records reviewed: Yes I reviewed the patient's medical records. Lab Data Lab results reviewed: Yes I reviewed the patient's lab results. Result diagrams: 11/28/21 03:59 11/28/21 03:59 Labs: Lab Results 11/28/21 11/28/21 11/28/21 Range/Units 03:59 03:59 03:59 WBC 7.6 (4.8-10.8) X10*3/uL RBC 4.18 L (4.60-5.80) X10*6/uL Hgb 13.0 L (14.0-18.0) g/dl Hct 39.8 L (42.0-52.0) % MCV 95.2 (80.0-98.0) fL MCH 31.1 (27.0-33.0) pg MCHC 32.7 (31.0-36.0) g/dl RDW 13.4 (11.0-16.0) % Plt Count 324 (160-400) X10*3/uL MPV 9.0 L (9.4-12.4) fL Immature Gran % (Auto) 0.3 (0.0-0.4) % Neut % (Auto) 69.3 (45-73) % Lymph % (Auto) 20.3 (20-40) % [place] % (Auto) 8.9 (2-11) % Eos % (Auto) 0.8 (0-4) % Baso % (Auto) 0.4 (0-2) % Lymph # (Auto) 1.5 (1.2-4.9) X10*3/uL [place] # (Auto) 0.7 (0.1-1.2) X10*3/uL Eos # (Auto) 0.1 (0.0-0.4) X10*3/uL Baso # (Auto) 0.0 (0.0-0.2) X10*3/uL Abs Immat Gran (auto) 0.02 (0.00-0.03) X10*3/uL Absolute Neuts (auto) 5.3 (2.0-8.3) x10*3/uL Absolute Nucleated RBC 0.000 (0.0-0.012) X10*3/uL Nucleated RBC % (auto) 0.0 (0.0-0.2) /100WBC D-Dimer High Sensitivty < 150 NG/ML Sodium 138 (135-145) mmol/L Potassium 4.0 (3.3-5.1) mmol/L Chloride 103 (96-108) mmol/L Carbon Dioxide 27 (22-29) mmol/L Anion Gap 12 (12-20) BUN 19 H D (9-16) mg/dL Creatinine 0.86 (0.5-1.4) mg/dL Estim Creat Clear Calc 123.7 Estimated GFR > 60 Random Glucose 137 H D (60-115) mg/dL Calcium 9.4 (8.4-10.2) mg/dL Total Creatine Kinase 210 H (38-174) U/L Discharge Plan Discharge Clinical Impression: Muscle strain of lower leg Patient Disposition: Home, Self-Care Instructions: Musculoskeletal Pain (ED) Prescriptions: No Action lithium carbonate 300 mg tablet 1 tab PO BID 0RF aripiprazole 20 mg tablet 1 tab PO QAM 0RF Referrals: Physician,Unknown J [Primary Care Provider] - 2 days
[2021-11-28 04:06] LABS: Basophils Percent Auto 0.4 % (0-2); Eosinophils Absolute Auto 0.1 X10*3/uL (0.0-0.4); Eosinophils Percent Auto 0.8 % (0-4); Hematocrit 39.8 % (42.0-52.0); Imm Gran Abs Auto 0.02 X10*3/uL (0.00-0.03); Imm Gran Pct Auto 0.3 % (0.0-0.4); Lymphocytes Absolute Auto 1.5 X10*3/uL (1.2-4.9); Lymphocytes Percent Auto 20.3 % (20-40); MANUAL DIFF FLAG NO; Mean Corpuscular HGB Conc 32.7 g/dl (31.0-36.0); Mean Corpuscular Hemoglobin 31.1 pg (27.0-33.0); Mean Corpuscular Volume 95.2 fL (80.0-98.0); Monocytes Absolute Auto 0.7 X10*3/uL (0.1-1.2); Monocytes Percent Auto 8.9 % (2-11); Neutrophils Absolute Auto 5.3 x10*3/uL (2.0-8.3); Neutrophils Percent Auto 69.3 % (45-73); Platelet Count 324 X10*3/uL (160-400); Red Blood Count 4.18 X10*6/uL (4.60-5.80); Red Cell Distribution Width 13.4 % (11.0-16.0); White Blood Count 7.6 X10*3/uL (4.8-10.8)
[2021-11-28 04:20] LABS: Anion Gap 12 (12-20); Blood Urea Nitrogen 19 mg/dL (9-16); Calcium 9.4 mg/dL (8.4-10.2); Carbon Dioxide 27 mmol/L (22-29); Chloride 103 mmol/L (96-108); Creatinine Clr Calc Pharmacy 123.7; Estimated Glomerular Filt Rate > 60; Glucose Random 137 mg/dL (60-115); Sodium 138 mmol/L (135-145)
[2021-11-28 04:23] LABS: D Dimer High Sensitivity < 150 NG/ML
== END 2021-11-28 04:39 | disposition home or self-care (01) ==
PROVIDERS: Emergency Provider Emergency Medicine
DX: S86.911A Strain of unspecified muscle(s) and tendon(s) at lower leg level, right leg, initial encounter (principal); X58.XXXA Exposure to other specified factors, initial encounter; Y93.9 Activity, unspecified; Y92.9 Unspecified place or not applicable; Y99.9 Unspecified external cause status; Z59.02 Unsheltered homelessness
CPT/HCPCS: 36415; 80048; 82550; 85025; 85379; 99283; 99284

== ENCOUNTER 2021-12-08 13:50 | Emergency (ER) | payer OTHER, SELFPAY | END 2021-12-08 14:15 | disposition left against medical advice (07) | PROVIDERS: Emergency Provider Emergency Medicine; PCP Internal Medicine | DX: M79.642 Pain in left hand (principal) ==

== ENCOUNTER 2021-12-18 04:34 | Emergency (ER) | payer OTHER, SELFPAY ==
--- NOTE | 2021-12-18 05:32 | PC.NURSE ---
PRIOR TO T/W'S ARRIVAL PT WAS YELLING IN WR. THEN ESCORTED OUT BY SECURITY. STARTED THROWING ROCKS AT [employer]ARS. [facility] CALLED.
== END 2021-12-18 05:34 | disposition left against medical advice (07) ==
PROVIDERS: Emergency Provider Emergency Medicine; PCP Internal Medicine
DX: M79.606 Pain in leg, unspecified (principal)

== ENCOUNTER 2021-12-27 01:46 | Emergency (ER) | payer OTHER, SELFPAY ==
[2021-12-27 01:57] VITALS: BP 151/86; PULSE 89; RESP 22; TEMP 36.6; O2SAT 99; BMI 25.0
== END 2021-12-27 02:47 | disposition left against medical advice (07) ==
PROVIDERS: Emergency Provider Emergency Medicine
DX: R06.02 Shortness of breath (principal)
CPT/HCPCS: 99281; 99282

== ENCOUNTER 2022-01-06 03:05 | Emergency (ER) | payer OTHER, SELFPAY ==
[2022-01-06 03:18] VITALS: BP 132/74; PULSE 76; RESP 20; TEMP 36.6; O2SAT 97; BMI 24.3
[2022-01-06 04:00] VITALS: BP 137/73; PULSE 68; RESP 14; O2SAT 95
--- NOTE | 2022-01-06 04:51 | ED_ITS ---
HPI - General Adult General Chief complaint: General Medical Stated complaint: rt hip pain Time Seen by Provider: 01/06/22 04:51 Source: patient Mode of arrival: ambulatory History of Present Illness HPI narrative: 31-year-old male who presents with right hip pain but states that it is atraumatic in nature and denies any fever, chills, difficulty walking. Related Data Home Medications Medication Instructions Recorded Confirmed aripiprazole 20 mg tablet 1 tab PO QAM 09/05/21 01/06/22 lithium carbonate 600 mg capsule 1 cap PO BEDTIME 01/06/22 01/06/22 Allergies Allergy/AdvReac Type Severity Reaction Status Date / Time benztropine [From COGENTIN] Allergy Unknown UNKNOWN Verified 11/22/21 04:20 haloperidol [From HALDOL] AdvReac Severe JAW LOCK Verified 11/22/21 04:20 AND TONGUE SWELLING Review of Systems Review of Systems: Pertinent positives and negatives as stated in HPI 10 point review of systems is otherwise negative. [facility] Past Medical History Source: nursing notes reviewed Medical History Asthma Schizophrenia Social History Social History Alcohol intake: never Patient Tobacco Use Status: Current everyday Tobacco user Use of substances other than those prescribed or required for medical reasons: Yes Substance Use Type: Marijuana Substance Use Frequency: Chronic Longstanding Advance Directives: No Physical Exam ED Vital Signs: Vital Signs - 24 hr 01/06/22 03:18 01/06/22 04:00 Temperature 98 F Pulse Rate 76 68 Respiratory Rate 20 14 Blood Pressure 132/74 137/73 Pulse Oximetry 97 95 BMI result Body Mass Index 24.3 VITAL SIGNS: Reviewed. GENERAL: Well developed, well nourished, in no acute distress. HEAD: Normocephalic/atraumatic EYES: PERRLA, EOMI EARS: Ext canals without abnormality OROPHARYNX: no oral lesions noted, posterior pharynx clear LUNGS: Normal breath sounds. No adventitious sounds or accessory muscle use. SpO2<97> CARDIOVASCULAR: Regular rate and rhythm without noted murmurs ABDOMEN: Soft, non-tender, non-distended with bowel sounds. MUSCULOSKELETAL: No tenderness, deformities, or effusions noted on gross inspection; RIGHT HIP: There is no contusion, ecchymosis, erythema/induration and neurovascular is intact distal EXTREMITIES: No cyanosis, clubbing or edema. SKIN: Inspection of the skin reveals no rashes NEUROLOGIC: Alert and oriented x 4. Strength and sensation to light touch were grossly intact x 4. Course Course Course Narrative: 31-year-old male with atraumatic right hip pain no evidence to suggest infection or traumatic injury. Patient was provided with combination analgesics as well as a lidocaine patch and discharged home in stable condition. Discharge Plan Discharge Clinical Impression: Hip pain, right Patient Disposition: Home, Self-Care Instructions: Hip Pain (ED) Additional Instructions: Recommend [id number] Tylenol/ibuprofen as needed for pain control. Return to the ER for worsening symptoms. Prescriptions: No Action aripiprazole 20 mg tablet 1 tab PO QAM 0RF lithium carbonate 600 mg capsule 1 cap PO BEDTIME 0RF
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
[2022-01-06] MEDS: Acetaminophen 325 MG TABLET 975 MG PO (05:22)
[2022-01-06] MEDS: Ibuprofen 400 MG TABLET PO (05:23)
== END 2022-01-06 05:47 | disposition home or self-care (01) ==
PROVIDERS: Emergency Provider Student in an Organized Health Care Education/Training Program
DX: M25.551 Pain in right hip (principal); Z79.899 Other long term (current) drug therapy; F17.210 Nicotine dependence, cigarettes, uncomplicated; Z71.6 Tobacco abuse counseling
CPT/HCPCS: 99283; 99284

== ENCOUNTER 2022-01-07 11:08 | Emergency (ER) | payer OTHER, SELFPAY ==
--- NOTE | ~2022-01-07 | US_ITS ---
EXAMINATION: US SCROTUM CLINICAL INFORMATION: Painful right scrotum and lymphadenopathy. COMPARISON: None TECHNIQUE: A sonogram of the scrotum was performed assessing clemons-scale appearance and color Doppler flow. Spectral Doppler analysis of the arterial and venous flow were performed in the testes bilaterally. FINDINGS: RIGHT: Right testicle measures 4.4 x 2.2 x 3.5 cm, volume 18 mL. No focal testicular parenchymal lesions are visualized. Spectral Doppler analysis of the arterial and venous flow is normal in the right testis. Right epididymal head is normal in size. There is a trace right hydrocele. No right varicocele is seen. Right epididymal Doppler flow is normal. LEFT: Left testicle measures 4.3 x 2.1 x 2.5 cm, volume 11.6 mL. No focal testicular parenchymal lesions are visualized. Spectral Doppler analysis of the arterial and venous flow is normal in the left testis. Left epididymal head is normal in size. There is a trace left hydrocele. No left is seen. Left epididymal Doppler flow is normal. There is a small 2 mm calcification in the body of the epididymis. US/US scrotum IMPRESSION: Normal-appearing testicles. Trace bilateral hydroceles. Small calcification in the body of the left epididymis.
--- NOTE | ~2022-01-07 | US_ITS ---
EXAMINATION: US SCROTUM CLINICAL INFORMATION: Painful right scrotum and lymphadenopathy. COMPARISON: None TECHNIQUE: A sonogram of the scrotum was performed assessing clemons-scale appearance and color Doppler flow. Spectral Doppler analysis of the arterial and venous flow were performed in the testes bilaterally. FINDINGS: RIGHT: Right testicle measures 4.4 x 2.2 x 3.5 cm, volume 18 mL. No focal testicular parenchymal lesions are visualized. Spectral Doppler analysis of the arterial and venous flow is normal in the right testis. Right epididymal head is normal in size. There is a trace right hydrocele. No right varicocele is seen. Right epididymal Doppler flow is normal. LEFT: Left testicle measures 4.3 x 2.1 x 2.5 cm, volume 11.6 mL. No focal testicular parenchymal lesions are visualized. Spectral Doppler analysis of the arterial and venous flow is normal in the left testis. Left epididymal head is normal in size. There is a trace left hydrocele. No left is seen. Left epididymal Doppler flow is normal. There is a small 2 mm calcification in the body of the epididymis. US/US scrotum doppler IMPRESSION: Normal-appearing testicles. Trace bilateral hydroceles. Small calcification in the body of the left epididymis.
--- NOTE | ~2022-01-07 | CT_ITS ---
EXAMINATION: CT HEAD WITHOUT CONTRAST CLINICAL INFORMATION: Headache and bodyaches. Acute mental status change. COMPARISON: None TECHNIQUE: Contiguous axial imaging was performed from the skull base to vertex without intravenous administration of contrast. This CT examination was performed using dose optimization techniques as appropriate, variously including the following: *Automated exposure control *Adjustment of mA and/or kV according to patient size (this includes techniques or standardized protocols for targeted exams where dose is matched to indication/reason for exam; i.e. extremities or head) *Use of iterative reconstruction technique DLP: 656 mGy-cm FINDINGS: There is no evidence of acute intracranial hemorrhage or territorial infarction. No abnormal mass effect or midline shift is seen. Griffin to white matter differentiation is well preserved. No extra-axial fluid collections are identified. The ventricles are normal in size. There is no abnormal attenuation within the brain parenchyma. The osseous structures and soft tissues are normal. There is a minimal soft tissue opacification of the left ethmoid sinus and sphenoid sinus. Paranasal sinuses mastoid air cells and middle ears are otherwise clear. CT/CT head/brain wo con IMPRESSION: No acute intracranial findings.
[2022-01-07 11:18] VITALS: BP 120/82; BP 122/80; PULSE 60; PULSE 61; RESP 16; TEMP 36.9; O2SAT 99; BMI 25.0
--- NOTE | 2022-01-07 11:38 | ED_ITS ---
HPI - General Adult General Chief complaint: General Medical Stated complaint: NON MED COMPLIANT,SLEEPY @ CLINIC,ARROUSABLE Time Seen by Provider: 01/07/22 11:34 Source: family and old records reviewed Mode of arrival: EMS Limitations: altered mental status History of Present Illness HPI narrative: brought in by step mother not taking his psychiatric medications for years, using drugs, c/o R groin pain went to [facility] today but was too sleepy he cannot tell me any other information. woken by step mom complaint: somnolence, R groin pain Onset (ago): unknown Severity: moderate Quality: aching Pain Consistency: constant Relieving factors: none Exacerbating factors: none Associated symptoms: denies other symptoms Treatments prior to arrival: none Related Data Home Medications Medication Instructions Recorded Confirmed aripiprazole 20 mg tablet 1 tab PO DAILY 09/05/21 01/06/22 lithium carbonate 600 mg capsule 1 cap PO BEDTIME 01/06/22 01/06/22 acetaminophen 500 mg tablet 2 tab PO Q8H PRN 01/07/22 albuterol sulfate 90 mcg/actuation 2 puff INHALATION Q4-6H PRN 01/07/22 aerosol inhaler cyclobenzaprine 10 mg tablet 10 mg PO TID PRN 01/07/22 lithium carbonate 300 mg tablet 1 tab PO BID 01/07/22 oxcarbazepine 300 mg tablet 600 mg PO BID 01/07/22 Allergies Allergy/AdvReac Type Severity Reaction Status Date / Time benztropine [From COGENTIN] Allergy Unknown UNKNOWN Verified 11/22/21 04:20 haloperidol [From HALDOL] AdvReac Severe JAW LOCK Verified 11/22/21 04:20 AND TONGUE SWELLING Review of Systems Review of Systems: ROS unable to be obtained due to altered mental status [facility] Past Medical History Source: old records reviewed and obtained from family Medical History Asthma Schizophrenia Social History Social History (Updated 01/07/22 @ 11:40 by Sakina Lewis DO) Alcohol intake: never Patient Tobacco Use Status: Current everyday Tobacco user Use of substances other than those prescribed or required for medical reasons: Unable to respond Substance Use Type: Marijuana Advance Directives: No Advance Directives Information Provided: No Physical Exam ED Vital Signs: Vital Signs - 24 hr 01/07/22 11:18 01/07/22 13:05 Temperature 98.5 F 98.3 F Pulse Rate 61 61 Respiratory Rate 16 Blood Pressure 120/82 118/56 L Pulse Oximetry 99 96 BMI result Body Mass Index 25.0 Appearance: Somnolent. slow to respond. falls asleep wakes to family's voice and is able to answer questions appears in no acute distress. Eyes: Pupils equal, round and reactive to light. but has some nystagmus ENT: Pharynx normal. Neck: Normal inspection. Neck supple. CVS: Normal heart rate and rhythm. Pulses normal. Respiratory: No respiratory distress. Breath sounds normal. Abdomen: Soft and R groin with small chain of lymphadenopathy noted no large no ethan felt and no overlying erythema/abscess noted : R epididymis area is ttp but scrotum otherwise appears normal, no drainage from penis Skin: Skin warm and dry. Normal skin color. Normal skin turgor. Extremities: No lower extremity edema. No calf ttp Neuro: Oriented X 3 - slow to respond No motor deficit. No sensory deficit. Course Course Course Narrative: up and awake - wants to eat US pending will empirically cover with ceftriaxone and doxy refer to [facility] - not on medications, won't get help, he is not suicidal walked out without a limp, just ate a sandwhich, father was at bedside patient not suicidal at this time, no SI/HI, alert and oriented he is very much awake and eating no somnolent, no further nsytagmus noted - eloped from the hospital - I do not feel that I can section him. Father instructed to call [facility] he states he has done that as well and they have not sectioned him either. I again told him to call the police or 911 if he was worried when they got home. Medical Decision Making [facility] Narrative Medical decision making narrative: 31 yo male with hx of schizophrenia and substance abuse here somnolent with R groin pain at this time he is somnolent no obvious head trauma and can follow commands - will obtain basic labs, CT head for trauma. Given RLQ pain suspect possible STD - US of scrotum ordered, CTNG ordered. Will offer empiric treatment as well. Dispo per results and findings. Lab Data Result diagrams: 01/07/22 12:12 01/07/22 12:12 Labs: Lab Results 01/07/22 01/07/22 01/07/22 Range/Units 12:12 12:12 12:12 WBC 4.2 L (4.8-10.8) X10*3/uL RBC 4.18 L (4.60-5.80) X10*6/uL Hgb 13.3 L (14.0-18.0) g/dl Hct 39.8 L (42.0-52.0) % MCV 95.2 (80.0-98.0) fL MCH 31.8 (27.0-33.0) pg MCHC 33.4 (31.0-36.0) g/dl RDW 13.2 (11.0-16.0) % Plt Count 308 (160-400) X10*3/uL MPV 9.3 L (9.4-12.4) fL Immature Gran % (Auto) 0.2 (0.0-0.4) % Neut % (Auto) 46.9 (45-73) % Lymph % (Auto) 36.0 (20-40) % Maries % (Auto) 14.3 H (2-11) % Eos % (Auto) 2.1 (0-4) % Baso % (Auto) 0.5 (0-2) % Lymph # (Auto) 1.5 (1.2-4.9) X10*3/uL Maries # (Auto) 0.6 (0.1-1.2) X10*3/uL Eos # (Auto) 0.1 (0.0-0.4) X10*3/uL Baso # (Auto) 0.0 (0.0-0.2) X10*3/uL Abs Immat Gran (auto) 0.01 (0.00-0.03) X10*3/uL Absolute Neuts (auto) 2.0 (2.0-8.3) x10*3/uL Absolute Nucleated RBC 0.000 (0.0-0.012) X10*3/uL Nucleated RBC % (auto) 0.0 (0.0-0.2) /100WBC VBG pH (7.32-7.43) VBG pCO2 mmHg VBG pO2 mmHg VBG HCO3 (22-26) mmol/L VBG O2 Saturation % VBG Base Excess mmol/L Sodium 137 (135-145) mmol/L Potassium 5.2 H D (3.3-5.1) mmol/L Chloride 102 (96-108) mmol/L Carbon Dioxide 27 (22-29) mmol/L Anion Gap 13 (12-20) BUN 14 (9-16) mg/dL Creatinine 0.94 (0.5-1.4) mg/dL Estim Creat Clear Calc 115.9 Estimated GFR > 60 Random Glucose 99 (60-115) mg/dL Calcium 9.4 (8.4-10.2) mg/dL Magnesium 2.3 (1.6-2.6) mg/dL Total Bilirubin 0.3 (0.0-1.0) mg/dL Direct Bilirubin < 0.2 (0.0-0.5) mg/dL AST 43 H (5-37) U/L ALT 29 (0-40) U/L Alkaline Phosphatase 77 (39-117) U/L Total Protein 6.7 (6.5-8.0) g/dL Albumin 4.0 (3.5-5.0) g/dL Urine Color Urine Appearance Urine pH (5.0-8.0) Ur Specific [place] (1.005-1.025) Urine Protein (NEG-TRACE) MG/DL Urine Glucose (UA) (NEG) MG/DL Urine Ketones (NEG) MG/DL Urine Blood (NEG) Urine Nitrite (NEG) Ur Leukocyte Esterase (NEG) Urine Opiates Screen (Not Detect) Urine Fentanyl Screen (Not Detect) Ur Barbiturates Screen (Not Detect) Ur Phencyclidine Scrn (Not Detect) Ur Amphetamines Screen (Not Detect) U Benzodiazepines Scrn (Not Detect) [place] (0.60-1.20) mmol/L Urine Cocaine Screen (Not Detect) U Marijuana (THC) Screen (Not Detect) COVID-19 (FABIÁN) Negative (Negative) COVID-19 Clin Com See Note 01/07/22 01/07/22 01/07/22 Range/Units 12:12 12:12 12:12 WBC (4.8-10.8) X10*3/uL RBC (4.60-5.80) X10*6/uL Hgb (14.0-18.0) g/dl Hct (42.0-52.0) % MCV (80.0-98.0) fL MCH (27.0-33.0) pg MCHC (31.0-36.0) g/dl RDW (11.0-16.0) % Plt Count (160-400) X10*3/uL MPV (9.4-12.4) fL Immature Gran % (Auto) (0.0-0.4) % Neut % (Auto) (45-73) % Lymph % (Auto) (20-40) % Maries % (Auto) (2-11) % Eos % (Auto) (0-4) % Baso % (Auto) (0-2) % Lymph # (Auto) (1.2-4.9) X10*3/uL Maries # (Auto) (0.1-1.2) X10*3/uL Eos # (Auto) (0.0-0.4) X10*3/uL Baso # (Auto) (0.0-0.2) X10*3/uL Abs Immat Gran (auto) (0.00-0.03) X10*3/uL Absolute Neuts (auto) (2.0-8.3) x10*3/uL Absolute Nucleated RBC (0.0-0.012) X10*3/uL Nucleated RBC % (auto) (0.0-0.2) /100WBC VBG pH (7.32-7.43) VBG pCO2 mmHg VBG pO2 mmHg VBG HCO3 (22-26) mmol/L VBG O2 Saturation % VBG Base Excess mmol/L Sodium (135-145) mmol/L Potassium (3.3-5.1) mmol/L Chloride (96-108) mmol/L Carbon Dioxide (22-29) mmol/L Anion Gap (12-20) BUN (9-16) mg/dL Creatinine (0.5-1.4) mg/dL Estim Creat Clear Calc Estimated GFR Random Glucose (60-115) mg/dL Calcium (8.4-10.2) mg/dL Magnesium (1.6-2.6) mg/dL Total Bilirubin (0.0-1.0) mg/dL Direct Bilirubin (0.0-0.5) mg/dL AST (5-37) U/L ALT (0-40) U/L Alkaline Phosphatase (39-117) U/L Total Protein (6.5-8.0) g/dL Albumin (3.5-5.0) g/dL Urine Color STRAW Urine Appearance CLEAR Urine pH 7.0 (5.0-8.0) Ur Specific [place] <= 1.005 (1.005-1.025) Urine Protein NEG (NEG-TRACE) MG/DL Urine Glucose (UA) NEG (NEG) MG/DL Urine Ketones NEG (NEG) MG/DL Urine Blood NEG (NEG) Urine Nitrite NEG (NEG) Ur Leukocyte Esterase NEG (NEG) Urine Opiates Screen Not Detected (Not Detect) Urine Fentanyl Screen Not Detected (Not Detect) Ur Barbiturates Screen Not Detected (Not Detect) Ur Phencyclidine Scrn Not Detected (Not Detect) Ur Amphetamines Screen Not Detected (Not Detect) U Benzodiazepines Scrn Not Detected (Not Detect) [place] < 0.10 L (0.60-1.20) mmol/L Urine Cocaine Screen POSITIVE H (Not Detect) U Marijuana (THC) Screen POSITIVE H (Not Detect) COVID-19 (FABIÁN) (Negative) COVID-19 Clin Com 01/07/22 Range/Units 12:17 WBC (4.8-10.8) X10*3/uL RBC (4.60-5.80) X10*6/uL Hgb (14.0-18.0) g/dl Hct (42.0-52.0) % MCV (80.0-98.0) fL MCH (27.0-33.0) pg MCHC (31.0-36.0) g/dl RDW (11.0-16.0) % Plt Count (160-400) X10*3/uL MPV (9.4-12.4) fL Immature Gran % (Auto) (0.0-0.4) % Neut % (Auto) (45-73) % Lymph % (Auto) (20-40) % Maries % (Auto) (2-11) % Eos % (Auto) (0-4) % Baso % (Auto) (0-2) % Lymph # (Auto) (1.2-4.9) X10*3/uL Maries # (Auto) (0.1-1.2) X10*3/uL Eos # (Auto) (0.0-0.4) X10*3/uL Baso # (Auto) (0.0-0.2) X10*3/uL Abs Immat Gran (auto) (0.00-0.03) X10*3/uL Absolute Neuts (auto) (2.0-8.3) x10*3/uL Absolute Nucleated RBC (0.0-0.012) X10*3/uL Nucleated RBC % (auto) (0.0-0.2) /100WBC VBG pH 7.44 H (7.32-7.43) VBG pCO2 40 mmHg VBG pO2 54 mmHg VBG HCO3 27 H (22-26) mmol/L VBG O2 Saturation 85.0 % VBG Base Excess 3.7 mmol/L Sodium (135-145) mmol/L Potassium (3.3-5.1) mmol/L Chloride (96-108) mmol/L Carbon Dioxide (22-29) mmol/L Anion Gap (12-20) BUN (9-16) mg/dL Creatinine (0.5-1.4) mg/dL Estim Creat Clear Calc Estimated GFR Random Glucose (60-115) mg/dL Calcium (8.4-10.2) mg/dL Magnesium (1.6-2.6) mg/dL Total Bilirubin (0.0-1.0) mg/dL Direct Bilirubin (0.0-0.5) mg/dL AST (5-37) U/L ALT (0-40) U/L Alkaline Phosphatase (39-117) U/L Total Protein (6.5-8.0) g/dL Albumin (3.5-5.0) g/dL Urine Color Urine Appearance Urine pH (5.0-8.0) Ur Specific [place] (1.005-1.025) Urine Protein (NEG-TRACE) MG/DL Urine Glucose (UA) (NEG) MG/DL Urine Ketones (NEG) MG/DL Urine Blood (NEG) Urine Nitrite (NEG) Ur Leukocyte Esterase (NEG) Urine Opiates Screen (Not Detect) Urine Fentanyl Screen (Not Detect) Ur Barbiturates Screen (Not Detect) Ur Phencyclidine Scrn (Not Detect) Ur Amphetamines Screen (Not Detect) U Benzodiazepines Scrn (Not Detect) [place] (0.60-1.20) mmol/L Urine Cocaine Screen (Not Detect) U Marijuana (THC) Screen (Not Detect) COVID-19 (FABIÁN) (Negative) COVID-19 Clin Com Discharge Plan Discharge Clinical Impression: Cocaine abuse, Non compliance w medication regimen Pain in the groin Qualifiers: Laterality: right Qualified Code(s): R10.31 - Right lower quadrant pain Patient Disposition: Elopement Prescriptions: No Action aripiprazole 20 mg tablet 1 tab PO DAILY 0RF lithium carbonate 600 mg capsule 1 cap PO BEDTIME 0RF cyclobenzaprine 10 mg Tablet 10 mg PO TID PRN (Reason: Pain) 0RF oxcarbazepine 300 mg Tablet 600 mg PO BID 0RF acetaminophen 500 mg tablet 2 tab PO Q8H PRN (Reason: Pain) 0RF albuterol sulfate 90 mcg/actuation Hfa Aerosol Inhaler 2 puff INHALATION Q4-6H PRN (Reason: Wheezing) 0RF lithium carbonate 300 mg tablet 1 tab PO BID 0RF Discharge Date/Time: 01/07/22 14:09
[2022-01-07 12:19] LABS: MANUAL DIFF FLAG NO
[2022-01-07 12:23] LABS: Appearance Urine CLEAR; Color Urine STRAW; Glucose Urine UA NEG (NEG); Leukocyte Esterase Urine NEG (NEG); Nitrite Urine NEG (NEG); Specific Gravity - Urine <= 1.005 (1.005-1.025); Urine Blood NEG (NEG); Urine Ketones NEG (NEG); Urine Protein NEG (NEG-TRACE)
[2022-01-07 12:23] LABS: Venous Blood Gas Refer to POC result
[2022-01-07 12:23] LABS: VBG Base Excess 3.7 mmol/L; VBG HCO3 27 mmol/L (22-26); VBG pCO2 40 mmHg; VBG pH 7.44 (7.32-7.43); VBG pO2 54 mmHg
[2022-01-07 12:24] LABS: Basophils Percent Auto 0.5 % (0-2); Eosinophils Absolute Auto 0.1 X10*3/uL (0.0-0.4); Eosinophils Percent Auto 2.1 % (0-4); Hematocrit 39.8 % (42.0-52.0); Hemoglobin 13.3 g/dl (14.0-18.0); Imm Gran Abs Auto 0.01 X10*3/uL (0.00-0.03); Imm Gran Pct Auto 0.2 % (0.0-0.4); Lymphocytes Absolute Auto 1.5 X10*3/uL (1.2-4.9); Mean Corpuscular HGB Conc 33.4 g/dl (31.0-36.0); Mean Corpuscular Hemoglobin 31.8 pg (27.0-33.0); Mean Corpuscular Volume 95.2 fL (80.0-98.0); Mean Platelet Volume 9.3 fL (9.4-12.4); Monocytes Absolute Auto 0.6 X10*3/uL (0.1-1.2); Monocytes Percent Auto 14.3 % (2-11); Neutrophils Percent Auto 46.9 % (45-73); Platelet Count 308 X10*3/uL (160-400); Red Blood Count 4.18 X10*6/uL (4.60-5.80); Red Cell Distribution Width 13.2 % (11.0-16.0); White Blood Count 4.2 X10*3/uL (4.8-10.8)
[2022-01-07 12:36] LABS: Lithium < 0.10 mmol/L (0.60-1.20)
[2022-01-07 12:40] LABS: Amphetamine Screen Urine Not Detected (Not Detect); Barbiturates, Urine Not Detected (Not Detect); Benzodiazepines Screen Urine Not Detected (Not Detect); Cannabinoid Screen Urine POSITIVE (Not Detect); Cocaine Screen Urine POSITIVE (Not Detect); Fentanyl, urine Not Detected (Not Detect); Opiate Screen Urine Not Detected (Not Detect); Phencyclidine Screen Urine Not Detected (Not Detect)
[2022-01-07 12:41] LABS: Alanine Aminotransferase 29 U/L (0-40); Alkaline Phosphatase 77 U/L (39-117); Anion Gap 13 (12-20); Aspartate Amino Transferase 43 U/L (5-37); Bilirubin Direct < 0.2 mg/dL (0.0-0.5); Bilirubin Total 0.3 mg/dL (0.0-1.0); Blood Urea Nitrogen 14 mg/dL (9-16); Calcium 9.4 mg/dL (8.4-10.2); Carbon Dioxide 27 mmol/L (22-29); Chloride 102 mmol/L (96-108); Creatinine Clr Calc Pharmacy 115.9; Estimated Glomerular Filt Rate > 60; Glucose Random 99 mg/dL (60-115); Magnesium 2.3 mg/dL (1.6-2.6); Potassium 5.2 mmol/L (3.3-5.1); Sodium 137 mmol/L (135-145); Total Protein 6.7 g/dL (6.5-8.0)
[2022-01-07 12:48] LABS: COVID-19 Test Negative (Negative); IDNOW Serial# 16C4AD1C
[2022-01-07 13:05] VITALS: BP 118/56; PULSE 61; TEMP 36.8; O2SAT 96
[2022-01-07] MEDS: cefTRIAXone sodium 500 MG, Lidocaine HCl 1 % MPF 1 ML IM (13:55)
== END 2022-01-07 14:09 | disposition left against medical advice (07) ==
PROVIDERS: Emergency Provider Emergency Medicine
DX: M79.10 Myalgia, unspecified site (principal); R51.9 Headache, unspecified; F17.200 Nicotine dependence, unspecified, uncomplicated; Z71.6 Tobacco abuse counseling; F12.90 Cannabis use, unspecified, uncomplicated; Z91.14 Patient's other noncompliance with medication regimen; Z79.899 Other long term (current) drug therapy; Z20.822 Contact with and (suspected) exposure to COVID-19
CPT/HCPCS: 36415; 70450; 76870; 80048; 80076; 80178; 80307; 81003; 82803; 83735; 85025; 87635; 93975; 96372; 99284; J0696

== ENCOUNTER 2023-12-01 22:38 | Emergency (ER) | payer MEDICARE, MEDICAID, SELFPAY ==
--- NOTE | ~2023-12-01 | XR_ITS ---
EXAMINATION: RIGHT KNEE, RIGHT FOOT CLINICAL INFORMATION: Right knee and foot pain and swelling COMPARISON: None available. TECHNIQUE: 4 views of the right knee, 3 views of the right FINDINGS: Knee: The knee joint appears normal. No chondrocalcinosis. No joint effusion. No fractures or dislocations. Incidental note is made of an exostosis arising from the medial tibial metaphysis. Foot: No significant bone, joint or soft tissue abnormality is seen. XR/XR knee RT 3V IMPRESSION: No evidence of an acute osseous injury. Incidental note made of an exostosis arising from the medial tibial metaphysis.
--- NOTE | ~2023-12-01 | XR_ITS ---
EXAMINATION: RIGHT KNEE, RIGHT FOOT CLINICAL INFORMATION: Right knee and foot pain and swelling COMPARISON: None available. TECHNIQUE: 4 views of the right knee, 3 views of the right FINDINGS: Knee: The knee joint appears normal. No chondrocalcinosis. No joint effusion. No fractures or dislocations. Incidental note is made of an exostosis arising from the medial tibial metaphysis. Foot: No significant bone, joint or soft tissue abnormality is seen. XR/XR foot RT min 3V IMPRESSION: No evidence of an acute osseous injury. Incidental note made of an exostosis arising from the medial tibial metaphysis.
[2023-12-01 23:00] VITALS: BP 123/83; PULSE 97; RESP 18; TEMP 37.1; O2SAT 97; BMI 30.4
[2023-12-01 23:31] VITALS: BP 137/78; PULSE 91; RESP 16; TEMP 37; O2SAT 94
--- NOTE | 2023-12-02 00:10 | ED.EXTPRO ---
HPI - Extremity Problem General Chief complaint: Extremity Problem Stated complaint: RT foot swelling Time Seen by Provider: 12/01/23 23:55 Source: patient Mode of arrival: ambulatory Limitations: no limitations History of Present Illness HPI Narrative: 32 yo male with PMH of mental health issues and prior substance was walking two days ago and now has R foot pain. It has caused swelling and redness denies known trauma. MD Complaint: extremity pain and extremity swelling Onset (ago): day(s) (2) Pain Consistency: constant Location: right and lower extremity Quality: aching Radiation: none Relieving factors: movement Exacerbating factors: nothing Associated symptoms: denies other symptoms Related Data Home Medications Medication Instructions Recorded Confirmed aripiprazole 20 mg tablet 1 tab PO DAILY 09/05/21 01/06/22 lithium carbonate 600 mg capsule 1 cap PO BEDTIME 01/06/22 01/06/22 acetaminophen 500 mg tablet 2 tab PO Q8H PRN Pain 01/07/22 albuterol sulfate 90 mcg/actuation 2 puff inhalation Q4-6H PRN 01/07/22 aerosol inhaler Wheezing cyclobenzaprine 10 mg tablet 10 mg PO TID PRN Pain 01/07/22 lithium carbonate 300 mg tablet 1 tab PO BID 01/07/22 oxcarbazepine 300 mg tablet 600 mg PO BID 01/07/22 Previous Rx's Medication Instructions Recorded cephalexin 500 mg capsule 500 mg PO QID 7 days #28 caps 12/02/23 Allergies Allergy/AdvReac Type Severity Reaction Status Date / Time benztropine [From COGENTIN] Allergy Unknown UNKNOWN Verified 12/01/23 23:04 haloperidol [From HALDOL] AdvReac Severe JAW LOCK Verified 12/01/23 23:04 AND TONGUE SWELLING Review of Systems Review of Systems: Constitutional : No Fever, No Chills ENT/Mouth : No Ear Pain, No Hoarseness, No sore throat Eyes: No Eye Pain, No Swelling, No Redness, No Foreign Body Cardiovascular : No Chest Pain, No SOB Respiratory : No Cough, No Dyspnea Gastrointestinal : No Nausea, No Vomiting, No Diarrhea, No abdominal Pain Genitourinary : No Dysuria, No Hematuria Musculoskeletal : positive joint pain, No Myalgias, pos Joint Swelling Skin : No Skin lacerations, No rash Neuro : No Weakness, No Numbness, No Loss of Consciousness, No Dizziness, No Headache Psych : No Anxiety/Panic, No Depression All other systems reviewed and are negative [facility] Past Medical History Attestation statement: The following information was validated with the patient. Source: old records reviewed Medical History Schizophrenia Asthma Social History Social History Alcohol intake: never Patient Tobacco Use Status: Current everyday Tobacco user Substance Use Type: Marijuana Advance Directives: No Advance Directives Information Provided: No Physical Exam Vital Signs: Vital Signs: Last Vital Signs Temp 98.6 F 12/01/23 23:31 Pulse 91 12/01/23 23:31 Resp 16 12/01/23 23:31 BP 137/78 12/01/23 23:31 Pulse Ox 94 12/01/23 23:31 O2 Del Method Room Air 12/01/23 23:31 BMI result Body Mass Index 30.4 Appearance: Alert. Oriented X3. No acute distress. Eyes: Pupils equal, round and reactive to light. ENT: Pharynx normal. Neck: Normal inspection. Neck supple. CVS: Normal heart rate and rhythm. Pulses normal. Respiratory: No respiratory distress. Breath sounds normal. Abdomen: Soft and nontender. Skin: Skin warm and dry. Normal skin color. Normal skin turgor. Extremities: No lower extremity edema. R foot redness and heat on lateral aspect of foot no fluctuance felt, distal NV intact, no further redness or swelling. no swelling of the ankle joint or ttp Neuro: Oriented X 3. No motor deficit. No sensory deficit. Medical Decision Making Medical Decision Making MDM Narrative: 32 yo male with schizophrenia here with R foot pain that is red along lateral aspect denies known trauma he is NV intact at this time xrays ordered for fracture but given appearance will place in splint and start on cephalexin with precautions to return ankle joint is not involved no calf swelling it is lateral foot. Differential Diagnosis Differential Diagnoses: The differential diagnosis associated with the presentation includes foot fracture, cellulitis Admission/Observation Consideration of admission/observation: Escalation of care including admission/observation considered Independent Interpretation I performed an independent interpretation of an: Plain X-Ray (no fracture) Radiology Impression Discussion of test interpretation with radiology: I have reviewed the radiologist's reading. External Record Review External record reviewed: Inpatient record Prescription Management I considered prescription management with: Pain Medication, Antibiotic and Other Procedures Orthopedic Splinting/Casting Injury #1: Side: right Lower Extremity Injury Location: foot Lower Extremity Immobilizer: AirCast Other Orthopedic Equipment: crutches Discharge Plan Discharge Clinical Impression: Cellulitis Qualifiers: Site of cellulitis: extremity Site of cellulitis of extremity: lower extremity Laterality: right Qualified Code(s): L03.115 - Cellulitis of right lower limb Acute foot pain Qualifiers: Laterality: right Qualified Code(s): M79.671 - Pain in right foot Patient Disposition: Home, Self-Care Instructions: Cellulitis (ED), Arthralgia (ED) Additional Instructions: use crutches for the next 5 days and wear splint. do not bear weight. can take tylenol and motrin for pain as well. return for worsening pain, swelling, redness or any other concerns. rest, elevate and monitor Prescriptions: New cephalexin 500 mg capsule 500 mg PO QID 7 Days Qty: 28 0RF No Action aripiprazole 20 mg tablet 1 tab PO DAILY lithium carbonate 600 mg capsule 1 cap PO BEDTIME cyclobenzaprine 10 mg Tablet 10 mg PO TID PRN (Reason: Pain) oxcarbazepine 300 mg Tablet 600 mg PO BID acetaminophen 500 mg tablet 2 tab PO Q8H PRN (Reason: Pain) albuterol sulfate 90 mcg/actuation Hfa Aerosol Inhaler 2 puff INHALATION Q4-6H PRN (Reason: Wheezing) lithium carbonate 300 mg tablet 1 tab PO BID
[2023-12-02] MEDS: HYDROcodone Bit/Acetam 5/325 TABLET 1 TAB PO (00:27)
[2023-12-02] MEDS: cephALEXin 500 MG CAPSULE PO (00:28)
== END 2023-12-02 00:37 | disposition home or self-care (01) ==
PROVIDERS: Emergency Provider Emergency Medicine; PCP Internal Medicine
DX: R60.0 Localized edema (principal); L03.115 Cellulitis of right lower limb; M79.671 Pain in right foot; M79.604 Pain in right leg; Z79.899 Other long term (current) drug therapy
CPT/HCPCS: 29515; 73562; 73630; 99283; 99284

== ENCOUNTER 2023-12-26 15:03 | Inpatient (IN) | payer MEDICARE, MEDICAID, SELFPAY ==
--- NOTE | ~2023-12-26 | XR_ITS ---
EXAMINATION: XR CHEST CLINICAL INFORMATION: Cocaine use, wheezing COMPARISON: Chest x-ray on 10/09/2021 TECHNIQUE: Frontal view of the chest was obtained. FINDINGS: No significant abnormality is noted involving the heart, lungs, mediastinum, bony thorax or soft tissues. XR/XR chest 1V IMPRESSION: Unremarkable examination.
--- NOTE | 2023-12-26 15:12 | ED_ITS ---
HPI - General Adult General Chief complaint: Psychiatric Symptoms Stated complaint: barricaded self at home, AMS, schizophrenia Time Seen by Provider: 12/26/23 15:23 Source: patient and family Mode of arrival: ambulatory Limitations: other (acute michelle ) History of Present Illness HPI narrative: This is a 33-year-old male history of schizophrenia presenting to the emergency department with anxiety, paranoia, patient called the police earlier today for wellness check he just was not feeling right, he then barricaded himself into the room when police arrived. Police were able to talk to patient, he came out of the room and they advised for him to come in for evaluation. He reports he has been using cocaine and has not been taking his psych meds. Not suicidal or homicidal. Very tearful. Reports his legs have been hurting for a while and they feel sore. No trauma to legs. No numbness, tingling, chest pain, shortness breath, headache, vision changes, dizziness and weakness. Related Data Home Medications ?Medication ?Instructions ?Recorded ?Confirmed aripiprazole 20 mg tablet 1 tab PO DAILY 09/05/21 01/06/22 lithium carbonate 600 mg capsule 1 cap PO BEDTIME 01/06/22 01/06/22 acetaminophen 500 mg tablet 2 tab PO Q8H PRN Pain 01/07/22 albuterol sulfate 90 mcg/actuation 2 puff inhalation Q4-6H PRN 01/07/22 aerosol inhaler Wheezing cyclobenzaprine 10 mg tablet 10 mg PO TID PRN Pain 01/07/22 lithium carbonate 300 mg tablet 1 tab PO BID 01/07/22 oxcarbazepine 300 mg tablet 600 mg PO BID 01/07/22 Previous Rx's ?Medication ?Instructions ?Recorded cephalexin 500 mg capsule 500 mg PO QID 7 days #28 caps 12/02/23 Allergies Allergy/AdvReac Type Severity Reaction Status Date / Time benztropine [From COGENTIN] Allergy Unknown UNKNOWN Verified 12/26/23 15:20 haloperidol [From HALDOL] AdvReac Severe JAW LOCK Verified 12/26/23 15:20 AND TONGUE SWELLING Review of Systems 2 Review of Systems: Yes all other systems are reviewed and are negative Eyes: Eyes: Reports other visual disturbances PMFSH Past Medical History Medical History Schizophrenia Asthma Social History Social History Alcohol intake: current Alcohol intake frequency: a few times a month Patient Tobacco Use Status: Current everyday Tobacco user Smoked in Last 30 Days: Yes Use of substances other than those prescribed or required for medical reasons: Yes Substance Use Type: Crack/Cocaine Substance Use Frequency: Weekly Substance Use Frequency Other:: 1 Last Used Substance: Days (ago) Advance Directives: No Advance Directives Information Provided: No Physical Exam ED Vital Signs: Vital Signs - 24 hr 12/26/23 15:13 12/26/23 15:46 Pulse Rate 106 H Respiratory Rate 24 H 16 Blood Pressure 154/101 H Pulse Oximetry 98 Oxygen Delivery Method Room Air BMI result Body Mass Index 25.8 Hypertensive and tachycardic likely secondary to acute anxiety/paranoia Appearance: Alert.? Oriented X3.? No acute distress.? Patient anxious appearing. Patient also appearing slightly paranoid Head: Normocephalic, atraumatic, no step-offs or deformities Eyes: Pupils equal, round and reactive to light.? ENT: Pharynx normal.? Neck: Normal inspection.? Neck supple.? CVS: Normal heart rate and rhythm.? Pulses normal.? Respiratory: No respiratory distress.? Breath sounds normal.? Abdomen: Soft and nontender.? Skin: Skin warm and dry.? Normal skin color.? Normal skin turgor.? Extremities: No lower extremity edema.? No calf ttp. 5/5 strength to bilateral upper and lower extremities Neuro: Oriented X 3.? No motor deficit.? No sensory deficit. CN 2-12 intact . Patient ambulating with steady gait normal coordination. Course Reevaluation(s) Reevaluation #1: Patient with leukocytosis and left shift likely secondary to inflammatory state, chemistry low sodium 130, IV fluids ordered, anion gap of 22 likely from rhabdo, patient's total CPK 2405 and bun abd cr slightly higher than usual again fluids will treat this. Urine tox, UA and repeat CPK pending Time: 18:27 Reevaluation #2: Plan hospital admission Time: 18:36 Medications Administered Discontinued Medications Generic Name Dose Route Start Last Admin Trade Name Freq PRN Reason Stop Dose Admin Sodium Chloride 1,000 mls @ 999 mls/hr 12/26/23 16:45 12/26/23 17:55 Ns IV 12/26/23 17:45 Infused .Q1H1M QUIRINO Infusion Sodium Chloride 1,000 mls @ 999 mls/hr 12/26/23 17:30 12/26/23 17:55 Ns IV 12/26/23 18:30 999 mls/hr .Q1H1M QUIRINO Administration Medical Decision Making Medical Decision Making [facility] Narrative: 33-year-old male presents with acute michelle not med compliant. Physical exam patient anxious and paranoid appearing. History and physical exam concerning for non med compliance schizophrenia with acute michelle and psychosis. Unlikely metabolic derangements. Plan at this time will obtain labs, urine toxicology, ethanol level. Medical clearance planned then care team evaluation Differential Diagnosis Differential Diagnoses: The differential diagnosis associated with the presentation includes History and physical exam concerning for non med compliance schizophrenia with acute michelle and psychosis. Unlikely metabolic derangements. Admission/Observation Consideration of admission/observation: Escalation of care including admission/observation considered possible Consult Healthcare Provider Management of the patient was discussed with: Behavioral Health Provider Lab Data [facility] Lab Attestation statement: I reviewed the patient's lab results. 12/26/23 15:58 12/26/23 15:58 Labs: Lab Results 12/26/23 12/26/23 Range/Units 15:58 18:19 WBC 12.7 H (4.8-10.8) X10*3/uL RBC 4.54 L (4.60-5.80) X10*6/uL Hgb 14.1 (14.0-18.0) g/dl Hct 39.5 L (42.0-52.0) % MCV 87.0 (80.0-98.0) fL MCH 31.1 (27.0-33.0) pg MCHC 35.7 (31.0-36.0) g/dl RDW 12.7 (11.0-16.0) % Plt Count 298 (160-400) X10*3/uL MPV 8.9 L (9.4-12.4) fL Immature Gran % (Auto) 0.4 (0.0-0.4) % Neut % (Auto) 82.3 H (45-73) % Lymph % (Auto) 9.1 L (20-40) % [place] % (Auto) 7.9 (2-11) % Eos % (Auto) 0.1 (0-4) % Baso % (Auto) 0.2 (0-2) % Lymph # (Auto) 1.2 (1.2-4.9) X10*3/uL [place] # (Auto) 1.0 (0.1-1.2) X10*3/uL Eos # (Auto) 0.0 (0.0-0.4) X10*3/uL Baso # (Auto) 0.0 (0.0-0.2) X10*3/uL Abs Immat Gran (auto) 0.05 H (0.00-0.03) X10*3/uL Absolute Neuts (auto) 10.5 H (2.0-8.3) x10*3/uL Absolute Nucleated RBC 0.000 (0.0-0.012) X10*3/uL Nucleated RBC % (auto) 0.0 (0.0-0.2) /100WBC Sodium 130 L (135-145) mmol/L Potassium 4.1 (3.3-5.1) mmol/L Chloride 94 L (96-108) mmol/L Carbon Dioxide 18 L (22-29) mmol/L Anion Gap 22 H (12-20) BUN 15 (9-16) mg/dL Creatinine 1.05 (0.5-1.4) mg/dL Estim Creat Clear Calc 98.6 Estimated GFR > 60 Random Glucose 101 (60-115) mg/dL Calcium 9.6 (8.4-10.2) mg/dL Magnesium 2.3 (1.6-2.6) mg/dL Total Bilirubin 1.0 (0.0-1.0) mg/dL AST 82 H (5-37) U/L ALT 29 (0-40) U/L Alkaline Phosphatase 85 (39-117) U/L Total Creatine Kinase 2405 H (38-174) U/L Total Protein 8.3 H (6.5-8.0) g/dL Albumin 4.5 (3.5-5.0) g/dL Urine Color Yellow Urine Appearance Clear Urine pH 5.5 (5.0-9.0) Ur Specific [place] 1.010 (1.005-1.025) Urine Protein Negative (Neg-Trace) mg/dL Urine Glucose (UA) Negative (Negative) mg/dL Urine Ketones 80 (Negative) mg/dL Urine Blood Negative (Negative) Urine Nitrite Negative (Negative) Ur Leukocyte Esterase Negative (Negative) Ethyl Alcohol < 10 mg/dL COVID-19 (FABIÁN) Negative (Negative) COVID-19 Clin Com See Note External Record Review External record reviewed: Inpatient record, Office record, Outpatient record, Prior outpatient labs, Prior outpatient radiology, Primary care record and Outside ED record Chronic Conditions Patient?s care impacted by: Other (Schizophrenia) Social Determinants Patient?s care significantly limited by Social Determinants of Health including: Other Social Determinant of Health Critical Care Time Critical Care Time Critical Care Time: Yes Total Critical Care Time: 35 Attestation: I attest to this time spent taking care of the patient, obtaining history, physical, reviewing labs, imaging, speaking to my hospitalist Discharge Plan Discharge Clinical Impression: Depression, Acute anxiety, Rhabdomyolysis Patient Disposition: Admitted As Inpatient Interventions: [place]-Suicide Risk Severity Scale Last Done: 12/26/23 15:44 Print Language: Surinamese
[2023-12-26 15:13] VITALS: BP 154/101; BP 176/96; PULSE 104; PULSE 106; RESP 24; O2SAT 97; O2SAT 98; BMI 25.8
[2023-12-26 15:46] VITALS: RESP 16
[2023-12-26 16:07] LABS: MANUAL DIFF FLAG NO
[2023-12-26 16:10] LABS: Basophils Percent Auto 0.2 % (0-2); Eosinophils Percent Auto 0.1 % (0-4); Hematocrit 39.5 % (42.0-52.0); Hemoglobin 14.1 g/dl (14.0-18.0); Imm Gran Abs Auto 0.05 X10*3/uL (0.00-0.03); Imm Gran Pct Auto 0.4 % (0.0-0.4); Lymphocytes Absolute Auto 1.2 X10*3/uL (1.2-4.9); Lymphocytes Percent Auto 9.1 % (20-40); Mean Corpuscular HGB Conc 35.7 g/dl (31.0-36.0); Mean Corpuscular Hemoglobin 31.1 pg (27.0-33.0); Mean Platelet Volume 8.9 fL (9.4-12.4); Monocytes Percent Auto 7.9 % (2-11); Neutrophils Absolute Auto 10.5 x10*3/uL (2.0-8.3); Neutrophils Percent Auto 82.3 % (45-73); Platelet Count 298 X10*3/uL (160-400); Red Blood Count 4.54 X10*6/uL (4.60-5.80); Red Cell Distribution Width 12.7 % (11.0-16.0); White Blood Count 12.7 X10*3/uL (4.8-10.8)
[2023-12-26 16:22] LABS: Alanine Aminotransferase 29 U/L (0-40); Albumin Level 4.5 g/dL (3.5-5.0); Alkaline Phosphatase 85 U/L (39-117); Anion Gap 22 (12-20); Aspartate Amino Transferase 82 U/L (5-37); Blood Urea Nitrogen 15 mg/dL (9-16); Calcium 9.6 mg/dL (8.4-10.2); Carbon Dioxide 18 mmol/L (22-29); Chloride 94 mmol/L (96-108); Creatinine Clr Calc Pharmacy 98.6; Estimated Glomerular Filt Rate > 60; Ethanol < 10 mg/dL; Glucose Random 101 mg/dL (60-115); Magnesium 2.3 mg/dL (1.6-2.6); Potassium 4.1 mmol/L (3.3-5.1); Sodium 130 mmol/L (135-145); Total Protein 8.3 g/dL (6.5-8.0)
[2023-12-26 16:26] LABS: COVID-19 Test Negative (Negative); IDNOW Serial# 152EDE1D
--- NOTE | 2023-12-26 16:44 | PC.NURSE ---
Patient presents to the ED via EMS, reporting 10/10 right leg pain. Per EMS patient barricaded himself in his apartment after a wellness check was called in on him. He denies SI/HI/AH/VH. Calm and cooperative, alert and oriented x4, he is rolling back and forth in bed and occasionally pacing due to the 10/10 right leg pain. Per patient and previous visit notes, patient was seen back in mid november for cellulitis of the right foot which he reports he never got antibiotics or follow up treatment for. Pt agreeable to assessment and is otherwise well. Blood drawn. Report given to NIYAH Garcia in main ED so patient can receive medical treatment for elevaed CPK
[2023-12-26] MEDS: 0.9 % Sodium Chloride 1,000 ML 999 ML IV ×2 (16:54→17:55)
[2023-12-26 18:34] LABS: Appearance Urine Clear; Color Urine Yellow; Glucose Urine UA Negative (Negative); Leukocyte Esterase Urine Negative (Negative); Nitrite Urine Negative (Negative); PH 5.5 (5.0-9.0); Urine Blood Negative (Negative); Urine Ketones 80 mg/dL (Negative); Urine Protein Negative (Neg-Trace)
[2023-12-26 18:38] LABS: Amphetamine Screen Urine Not Detected (Not Detect); Barbiturates, Urine Not Detected (Not Detect); Benzodiazepines Screen Urine Not Detected (Not Detect); Cannabinoid Screen Urine POSITIVE (Not Detect); Cocaine Screen Urine POSITIVE (Not Detect); Fentanyl, urine POSITIVE (Not Detect); Opiate Screen Urine Not Detected (Not Detect); Phencyclidine Screen Urine Not Detected (Not Detect)
[2023-12-26] MEDS: Lactated Ringers 1,000 ML 999 ML IV (19:42)
[2023-12-26] MEDS: LORazepam 2 MG/ML VIAL 1.5 MG IVPUSH (19:42)
--- NOTE | 2023-12-26 19:42 | PM.IMHP ---
History of Present Illness Date of Service: 12/26/23 Attending physician on admission: Gail Delgadillo Chief Complaint: Legs pain Ricardo Irene is a 33 years old man with past medical history significant for schizophrenia and asthma who was brought to the emergency department via EMS after his sister called [employer] police Department. The patient was found to be barricaded in his room. He was found to be agitated, crying and quite anxious. He stated that he has not been taking his psychiatric medication including lithium. He admits to use of cocaine (inhaled; denies IV drug use). He has not right now complaining of anxiety, legs pain for 2 weeks and sweating. He complained of mild shortness of breath when denied chest pain, abdominal pain, nausea, , headache, dizziness vomiting or diarrhea. He denied alcohol abuse. In the ED, he was found to be tachycardic, tachypneic and hypertensive. His blood pressure is 154/101. Blood workup was remarkable for leukocytosis of 12.7. Hemoglobin and platelets are normal. Blood workup was remarkable for hyponatremia, 130. Bicarb and chloride low and anion gap is elevated. CK is 2405 --> 2015. Renal function is normal. LFTs are remarkable ulcer for slight elevation of AST. Urinalysis is normal except for positive ketones. Urine drug screen is positive for fentanyl, cocaine and marijuana. ED tx: Type 2 L bolus. Review of Systems Review of Systems: All 12 systems were reviewed and normal except as noted in HPI. [facility] Medical History (Updated 12/26/23 @ 20:19 by Gail Delgadillo MD) Cocaine abuse Schizophrenia Asthma Social History Alcohol intake: current Alcohol intake frequency: a few times a month Patient Tobacco Use Status: Current everyday Tobacco user Smoked in Last 30 Days: Yes Use of substances other than those prescribed or required for medical reasons: Yes Substance Use Type: Crack/Cocaine Substance Use Frequency: Weekly Substance Use Frequency Other:: 1 Last Used Substance: Days (ago) Advance Directives: No Advance Directives Information Provided: No Meds Allergies Allergy/AdvReac Type Severity Reaction Status Date / Time benztropine [From COGENTIN] Allergy Unknown UNKNOWN Verified 12/26/23 15:20 haloperidol [From HALDOL] AdvReac Severe JAW LOCK Verified 12/26/23 15:20 AND TONGUE SWELLING Active Medications: Current Medications Acetaminophen (Acetaminophen 325 Mg Tablet) 650 mg PO Q6H PRN PRN Reason: Pain, Mild (Pain Scale 1-3) Enoxaparin Sodium (Enoxaparin Sodium 40 Mg/0.4 Ml Syringe) 40 mg SUBCUT Q24H QUIRINO Lactated Ringer's (Lr) 1,000 mls @ 999 mls/hr IV .Q1H1M QUIRINO Stop: 12/26/23 20:30 Lactated Ringer's (Lr) 1,000 mls @ 150 mls/hr IVCONT .Q6H40M [facility] Lorazepam (Lorazepam 1 Mg Tablet) 1 mg PO Q4H PRN PRN Reason: Anxiety Sodium Chloride (0.9 % Sodium Chloride Flush 3 Ml Syringe) 3 ml IVFLUSH QSHIFT [facility] Home Medications ?Medication ?Instructions ?Recorded ?Confirmed ?Last Taken ?Type aripiprazole 20 mg tablet 1 tab PO DAILY 09/05/21 01/06/22 08/29/21 08:00 History lithium carbonate 600 mg capsule 1 cap PO BEDTIME 01/06/22 01/06/22 Unknown History acetaminophen 500 mg tablet 2 tab PO Q8H PRN Pain 01/07/22 Unknown History albuterol sulfate 90 mcg/actuation 2 puff inhalation Q4-6H PRN 01/07/22 Unknown History aerosol inhaler Wheezing cyclobenzaprine 10 mg tablet 10 mg PO TID PRN Pain 01/07/22 Unknown History lithium carbonate 300 mg tablet 1 tab PO BID 01/07/22 Unknown History oxcarbazepine 300 mg tablet 600 mg PO BID 01/07/22 Unknown History Physical Exam Vital Signs and Narrative: Vital Signs: Last Vital Signs Pulse 106 H 12/26/23 15:13 Resp 16 12/26/23 15:46 BP 154/101 H 12/26/23 15:13 Pulse Ox 98 12/26/23 15:13 O2 Del Method Room Air 12/26/23 15:13 BMI result Body Mass Index 25.8 Constitutional - Awake and Alert. Looks anxious and diaphoretic. HEENT - PERRL, EOMI. Normal sclerae Dry oral mucosa. Heart - tachycardic. Normal rate. No murmur. Lungs - Normal lung expansion, Normal respiratory effort, No respiratory distress, tachypnea. Mild end expiratory wheezes. Abdomen - NT / ND; +BS; No rebound or guarding Extremities - bilateral lower extremity tenderness. No swelling. No erythema. Musculoskeletal - tenderness. Normal range of motion. Skin - Warm/Dry. No needle track [place]. Neurological - Alert & oriented x3. No focal weakness. Normal speech. Agitated. Psychological - Anxious affect Results Labs 12/26/23 15:58 12/26/23 15:58 Labs: Laboratory Results - last 24 hr 12/26/23 12/26/23 15:58 18:19 MCV 87.0 MCH 31.1 MCHC 35.7 RDW 12.7 Plt Count 298 MPV 8.9 L Immature Gran % (Auto) 0.4 Neut % (Auto) 82.3 H Lymph % (Auto) 9.1 L [place] % (Auto) 7.9 Eos % (Auto) 0.1 Baso % (Auto) 0.2 Lymph # (Auto) 1.2 [place] # (Auto) 1.0 Eos # (Auto) 0.0 Baso # (Auto) 0.0 Abs Immat Gran (auto) 0.05 H Absolute Neuts (auto) 10.5 H Absolute Nucleated RBC 0.000 Nucleated RBC % (auto) 0.0 Anion Gap 22 H Estim Creat Clear Calc 98.6 Estimated GFR > 60 Random Glucose 101 Calcium 9.6 Magnesium 2.3 Total Bilirubin 1.0 AST 82 H ALT 29 Alkaline Phosphatase 85 Total Creatine Kinase 2405 H 2015 H Total Protein 8.3 H Albumin 4.5 Urine Color Yellow Urine Appearance Clear Urine pH 5.5 Ur Specific [place] 1.010 Urine Protein Negative Urine Glucose (UA) Negative Urine Ketones 80 Urine Blood Negative Urine Nitrite Negative Ur Leukocyte Esterase Negative Urine Opiates Screen Not Detected Urine Fentanyl Screen POSITIVE H Ur Barbiturates Screen Not Detected Ur Phencyclidine Scrn Not Detected Ur Amphetamines Screen Not Detected U Benzodiazepines Scrn Not Detected Urine Cocaine Screen POSITIVE H U Marijuana (THC) Screen POSITIVE H Ethyl Alcohol < 10 COVID-19 (FABIÁN) Negative COVID-19 Clin Com See Note Assessment and Plan (1) Rhabdomyolysis: Qualifiers: Rhabdomyolysis type: traumatic Encounter type: initial encounter Qualified Code(s): T79.6XXA - Traumatic ischemia of muscle, initial encounter Status: Acute (2) Opiate withdrawal: Status: Acute (3) Acute asthma exacerbation: Qualifiers: Asthma severity: mild Asthma persistence: unspecified Qualified Code(s): J45.901 - Unspecified asthma with (acute) exacerbation Status: Acute (4) Hyponatremia: Status: Acute (5) High anion gap metabolic acidosis: Status: Acute (6) Opiate abuse, continuous: Status: Acute Plan Ricardo Irene is a 33 years old man admitted with: Acute rhabdomyolysis secondary to cocaine use and agitation. Admit to hospitalist service. Aggressive IV fluids. Continue to monitor total CK daily. Agitation secondary to opiate withdrawal (urine positive for fentanyl). COWS. Start treatment with Ativan IV stat then PO as needed as well as clonidine. Patient might need treatment with methadone or buprenorphine. Addiction medicine consult placed. High anion gap metabolic acidosis. Likely multifactorial: Ketosis and/or lactic acidosis. Check lactic acid. Recheck bicarb. Continue IV fluids. Hyponatremia likely secondary to poor p.o. intake of fluids + profound sweating. Continue IV fluids. Continue to monitor sodium level. Acute asthma exacerbation. Mild wheezing likely triggered by cocaine inhalation. Start treatment with Xopenex nebs as needed. Check CXR. Cocaine addiction. Addiction medicine consult. History of schizophrenia. Noncompliant with psychiatric meds. DVT prophylaxis: Lovenox Code status: Full Patient will need hospitalization for at least 2 midnights for rhabdomyolysis treatment with aggressive IV fluids to avoid renal injury. He will also need close monitoring of vital signs, blood workup and evaluation by additional medicine as well as treatment for opiate withdrawal. Quality Stroke Does the patient have a stroke diagnosis?: No VTE Prior VTE?: No VTE Risk Level:: Medical - moderate - high VTE Device Contraindication: Treatment Not Indicated VTE Drug Contraindication: N/A - Med Ordered
[2023-12-26 20:19] VITALS: BP 128/57; PULSE 105; RESP 16; TEMP 36.8; O2SAT 95
[2023-12-26] MEDS: cloNIDine HCL 0.1 MG TABLET PO (20:19)
[2023-12-26 20:23] VITALS: PULSE 105
[2023-12-26] MEDS: Lactated Ringers 1,000 ML 150 ML IVCONT (20:53)
[2023-12-26 21:39] VITALS: BP 113/57; PULSE 88; RESP 18; TEMP 36.1; O2SAT 93
--- NOTE | 2023-12-26 21:41 | PC.NURSE ---
Pt to [place] [id number] at 21:40. Upon trying to complete admission assessment with patient pt is falling asleep to questions. Does wake up with a light shake and stating Ricardo but then falls asleep. VSS at this time. Denied and SI/Hi. Stated lives at home but couldnt complete other questions at this moment. Will report to oncoming RN.
[2023-12-26 21:57] VITALS: BMI 28.0
[2023-12-26 22:08] LABS: Hemoglobin 12.8 g/dl (14.0-18.0); Mean Corpuscular HGB Conc 35.6 g/dl (31.0-36.0); Mean Corpuscular Hemoglobin 31.4 pg (27.0-33.0); Mean Corpuscular Volume 88.2 fL (80.0-98.0); Mean Platelet Volume 8.8 fL (9.4-12.4); Platelet Count 256 X10*3/uL (160-400); Red Blood Count 4.08 X10*6/uL (4.60-5.80); Red Cell Distribution Width 12.8 % (11.0-16.0); White Blood Count 8.1 X10*3/uL (4.8-10.8)
[2023-12-26 22:18] LABS: Lactic Acid 0.8 mmol/L (0.5-2.0)
[2023-12-26 22:23] LABS: Anion Gap 12 (12-20); Blood Urea Nitrogen 12 mg/dL (9-16); Calcium 8.3 mg/dL (8.4-10.2); Carbon Dioxide 23 mmol/L (22-29); Chloride 103 mmol/L (96-108); Creatinine Clr Calc Pharmacy 148.3; Estimated Glomerular Filt Rate > 60; Glucose Random 120 mg/dL (60-115); Potassium 4.1 mmol/L (3.3-5.1); Sodium 134 mmol/L (135-145)
[2023-12-27] MEDS: cloNIDine HCL 0.1 MG TABLET PO ×2 (03:25→18:34)
[2023-12-27] MEDS: Ketorolac Tromethamine 15 MG/ML VIAL IVPUSH ×2 (03:25→20:27)
[2023-12-27 03:42] VITALS: BP 125/60; PULSE 77; RESP 18; TEMP 36.8; O2SAT 97
[2023-12-27 05:58] LABS: MANUAL DIFF FLAG NO
[2023-12-27 06:10] LABS: Basophils Percent Auto 0.4 % (0-2); Eosinophils Percent Auto 0.6 % (0-4); Hematocrit 37.5 % (42.0-52.0); Hemoglobin 13.1 g/dl (14.0-18.0); Imm Gran Abs Auto 0.02 X10*3/uL (0.00-0.03); Imm Gran Pct Auto 0.4 % (0.0-0.4); Lymphocytes Percent Auto 18.8 % (20-40); Mean Corpuscular HGB Conc 34.9 g/dl (31.0-36.0); Mean Corpuscular Hemoglobin 31.1 pg (27.0-33.0); Mean Corpuscular Volume 89.1 fL (80.0-98.0); Mean Platelet Volume 9.1 fL (9.4-12.4); Monocytes Absolute Auto 0.7 X10*3/uL (0.1-1.2); Neutrophils Absolute Auto 3.5 x10*3/uL (2.0-8.3); Neutrophils Percent Auto 65.8 % (45-73); Platelet Count 247 X10*3/uL (160-400); Red Blood Count 4.21 X10*6/uL (4.60-5.80); White Blood Count 5.3 X10*3/uL (4.8-10.8)
[2023-12-27] MEDS: Lactated Ringers 1,000 ML 150 ML IVCONT ×3 (06:25→20:29)
[2023-12-27] MEDS: LORazepam 1 MG TABLET PO ×2 (07:40→13:23)
[2023-12-27] MEDS: Enoxaparin Sodium 40 MG/0.4 ML SYRINGE SUBCUT (07:40)
[2023-12-27] MEDS: 0.9 % Sodium Chloride Flush 3 ML SYRINGE IVFLUSH ×2 (07:40→19:49)
[2023-12-27 07:45] VITALS: BP 111/67; PULSE 75; RESP 16; TEMP 36.3; O2SAT 98
--- NOTE | 2023-12-27 08:37 | HO.PM.IMPN ---
Subjective Subjective Date of Service: 12/28/23 Interval History: F/u on rhabdomylosis, agitation he is less agitated this morning. CPK trending down Physical Exam Vital Signs: Vital Signs: Last Vital Signs Temp 97.4 F 12/27/23 07:45 Pulse 75 12/27/23 07:45 Resp 16 12/27/23 07:45 BP 111/67 12/27/23 07:45 Pulse Ox 98 12/27/23 07:45 O2 Del Method Room Air 12/27/23 07:45 BMI result Body Mass Index 28.0 General: AO X 3, no acute distress Resp: CTA bilateral CVS: S1,S2,RRR GI: +BS, NT, no distention Skin: No rash Neuro: motor grossly intact Psych: appropriate affect Objective Data Active Medications Acetaminophen (Acetaminophen 325 Mg Tablet) 650 mg PO Q6H PRN PRN Reason: Pain, Mild (Pain Scale 1-3) Clonidine HCl (Clonidine Hcl 0.1 Mg Tablet) 0.1 mg PO Q8H PRN; Protocol PRN Reason: Opiate Withdrawal Last Admin: 12/27/23 03:25 Dose: 0.1 mg Documented By: HI Enoxaparin Sodium (Enoxaparin Sodium 40 Mg/0.4 Ml Syringe) 40 mg SUBCUT Q24H [facility] Last Admin: 12/27/23 07:40 Dose: 40 mg Documented By: MK Lactated Ringer's (Lr) 1,000 mls @ 150 mls/hr IVCONT .Q6H40M [facility] Last Admin: 12/27/23 06:25 Dose: 150 mls/hr Documented By: HI Ketorolac Tromethamine (Ketorolac Tromethamine 15 Mg/Ml Vial) 15 mg IVPUSH ONCE PRN PRN Reason: Pain, Severe (Pain Scale 7-10) Last Admin: 12/27/23 03:25 Dose: 15 mg Documented By: HI Levalbuterol HCl (Levalbuterol Hcl 1.25 Mg/3 Ml Vial.Neb) 1.25 mg INHALE Q4H PRN PRN Reason: Wheezing Lorazepam (Lorazepam 1 Mg Tablet) 1 mg PO Q4H PRN PRN Reason: Anxiety Last Admin: 12/27/23 07:40 Dose: 1 mg Documented By: MK Sodium Chloride (0.9 % Sodium Chloride Flush 3 Ml Syringe) 3 ml IVFLUSH QSHIFT [facility] Last Admin: 12/27/23 07:40 Dose: 3 ml Documented By: MK Labs 12/27/23 05:37 12/27/23 05:37 Labs: Laboratory Results - last 24 hr 12/26/23 12/26/23 12/26/23 15:58 18:19 22:01 MCV 87.0 88.2 MCH 31.1 31.4 MCHC 35.7 35.6 RDW 12.7 12.8 Plt Count 298 256 MPV 8.9 L 8.8 L Immature Gran % (Auto) 0.4 Neut % (Auto) 82.3 H Lymph % (Auto) 9.1 L [place] % (Auto) 7.9 Eos % (Auto) 0.1 Baso % (Auto) 0.2 Lymph # (Auto) 1.2 [place] # (Auto) 1.0 Eos # (Auto) 0.0 Baso # (Auto) 0.0 Abs Immat Gran (auto) 0.05 H Absolute Neuts (auto) 10.5 H Absolute Nucleated RBC 0.000 0.000 Nucleated RBC % (auto) 0.0 0.0 Anion Gap 22 H 12 Estim Creat Clear Calc 98.6 148.3 Estimated GFR > 60 > 60 Random Glucose 101 120 H Lactic Acid 0.8 Calcium 9.6 8.3 L D Magnesium 2.3 Total Bilirubin 1.0 AST 82 H ALT 29 Alkaline Phosphatase 85 Total Creatine Kinase 2405 H 2015 H Total Protein 8.3 H Albumin 4.5 Urine Color Yellow Urine Appearance Clear Urine pH 5.5 Ur Specific [place] 1.010 Urine Protein Negative Urine Glucose (UA) Negative Urine Ketones 80 Urine Blood Negative Urine Nitrite Negative Ur Leukocyte Esterase Negative Urine Opiates Screen Not Detected Urine Fentanyl Screen POSITIVE H Ur Barbiturates Screen Not Detected Ur Phencyclidine Scrn Not Detected Ur Amphetamines Screen Not Detected U Benzodiazepines Scrn Not Detected Urine Cocaine Screen POSITIVE H U Marijuana (THC) Screen POSITIVE H Ethyl Alcohol < 10 COVID-19 (FABIÁN) Negative COVID-19 Clin Com See Note 12/27/23 05:37 MCV 89.1 MCH 31.1 MCHC 34.9 RDW 13.0 Plt Count 247 MPV 9.1 L Immature Gran % (Auto) 0.4 Neut % (Auto) 65.8 Lymph % (Auto) 18.8 L [place] % (Auto) 14.0 H Eos % (Auto) 0.6 Baso % (Auto) 0.4 Lymph # (Auto) 1.0 L [place] # (Auto) 0.7 Eos # (Auto) 0.0 Baso # (Auto) 0.0 Abs Immat Gran (auto) 0.02 Absolute Neuts (auto) 3.5 Absolute Nucleated RBC 0.000 Nucleated RBC % (auto) 0.0 Anion Gap Estim Creat Clear Calc Estimated GFR Random Glucose Lactic Acid Calcium Magnesium Total Bilirubin AST ALT Alkaline Phosphatase Total Creatine Kinase Total Protein Albumin Urine Color Urine Appearance Urine pH Ur Specific [place] Urine Protein Urine Glucose (UA) Urine Ketones Urine Blood Urine Nitrite Ur Leukocyte Esterase Urine Opiates Screen Urine Fentanyl Screen Ur Barbiturates Screen Ur Phencyclidine Scrn Ur Amphetamines Screen U Benzodiazepines Scrn Urine Cocaine Screen U Marijuana (THC) Screen Ethyl Alcohol COVID-19 (FABIÁN) COVID-19 Clin Com Assessment and Plan (1) Opiate abuse, continuous: Status: Acute (2) High anion gap metabolic acidosis: Status: Acute Plan 33/ m with schizophrenia here with Acute rhabdomyolysis d/t cocaine use and agitation. Admit to hospitalist service -IV and monitor CPK, and electroytes Agitation d/t ?t opiate withdrawal (urine positive for fentanyl). COWS. -Ativan, Clonidine to control symptoms, addiction med consult High anion gap metabolic acidosis, startvation ketosis, resolved with IVF Hyponatremia likely secondary to poor p.o. intake of fluids + profound sweating. Improving with IVF Acute asthma exacerbation. Mild wheezing likely triggered by cocaine inhalation. Start treatment with Xopenex nebs as needed. CXR no acute finding per my review Cocaine addiction. Addiction medicine consult. History of schizophrenia. Noncompliant with psychiatric meds. CARE team consult when medically ready for DC need for inpatient: IVF for acute rhabdo and treatement for opioid withdrawal DVT P: Lovenox Quality Stroke Does the patient have a stroke diagnosis?: No VTE Prior VTE?: No VTE Risk Level:: Medical - moderate - high VTE Device Contraindication: Treatment Not Indicated VTE Drug Contraindication: N/A - Med Ordered
[2023-12-27] MEDS: Acetaminophen 325 MG TABLET 650 MG PO ×2 (09:57→18:34)
--- NOTE | 2023-12-27 10:25 | MHC.CM.PN ---
pt lives with his mother ,he has his own ride home he had no previous servcies according to pt
[2023-12-27 11:20] LABS: Alanine Aminotransferase 24 U/L (0-40); Albumin Level 3.5 g/dL (3.5-5.0); Alkaline Phosphatase 67 U/L (39-117); Anion Gap 12 (12-20); Aspartate Amino Transferase 58 U/L (5-37); Bilirubin Total 0.4 mg/dL (0.0-1.0); Blood Urea Nitrogen 9 mg/dL (9-16); Calcium 8.6 mg/dL (8.4-10.2); Carbon Dioxide 25 mmol/L (22-29); Chloride 104 mmol/L (96-108); Creatinine Clr Calc Pharmacy 158.8; Estimated Glomerular Filt Rate > 60; Glucose Random 111 mg/dL (60-115); Potassium 4.1 mmol/L (3.3-5.1); Sodium 137 mmol/L (135-145); Total Protein 6.5 g/dL (6.5-8.0)
--- NOTE | 2023-12-27 12:02 | PHA.MEDREC ---
Pharmacy Consult ? Medication Reconciliation Pharmacy has completed the medication reconciliation Patient states they take abilify 20 mg daily, lithium 300 mg AM and 900 mg PM. However, have not taken in 3 weeks.
--- NOTE | 2023-12-27 12:46 | MHC.RECOVRN ---
Met with pt in 378-1 after consult placed to Addiction Medicine for Cocaine use.??? Pt also had fentanyl and THC in Tox screen.? Chart review completed and received report from floor nurse Ya. Pt had presented to the ED via EMS for anxiety and agitation while barricading himself in his room.? Also admitted to cocaine use the day prior and has a h/o schizophrenia.? Pt reports significant leg pain and being off medications for one week.? Pt was admitted to the floor for rhabdomyolysis treatment with aggressive IV fluids to avoid renal injury.? He will also need close monitoring and work up for opiate W/D.? Pt is prescribed Ativan and clonidine for anxiety and opiate W/D. Upon assessment pt is lying in bed awake and alert.? He denies the need for resources for cocaine use and denies any fentanyl/opiate use.? T/W reviewed pt?s tox screen results with him.? Pt did not discuss his cocaine use as he does not see it as an issue.? He was open to listening about harm reduction and the use of FTS.? He does report some restlessness and anxiety but states he is currently comfortable on prescribed medications.? Pt has no desire for treatment or services for Cocaine use disorder and denies intentional use of opiates.? T/W provided pt with Harm reduction tools and resources.?? Report to ACS team and pt?s nurse Ya T/W available as needed.
[2023-12-27 15:29] VITALS: BP 125/74; PULSE 66; RESP 20; TEMP 36.3; O2SAT 99
[2023-12-27] MEDS: Nicotine 14 MG PATCH.TD24 TRANSDERMA (19:50)
[2023-12-27 19:56] VITALS: BP 127/74; PULSE 68; RESP 20; TEMP 36.2; O2SAT 99
[2023-12-27 20:57] VITALS: RESP 16
[2023-12-28] MEDS: Acetaminophen 325 MG TABLET 650 MG PO (01:54)
[2023-12-28] MEDS: LORazepam 1 MG TABLET PO ×2 (02:01→11:25)
[2023-12-28 02:54] VITALS: RESP 18
[2023-12-28 03:01] VITALS: RESP 16
[2023-12-28 03:55] VITALS: BP 127/76; PULSE 68; RESP 20; TEMP 36.2; O2SAT 99
[2023-12-28] MEDS: Lactated Ringers 1,000 ML 150 ML IVCONT (05:05)
[2023-12-28 07:19] VITALS: BP 125/81; PULSE 65; RESP 18; TEMP 36.2; O2SAT 98
[2023-12-28 10:13] LABS: Anion Gap 10 (12-20)
[2023-12-28 10:16] LABS: Blood Urea Nitrogen 5 mg/dL (9-16); Calcium 8.4 mg/dL (8.4-10.2); Carbon Dioxide 29 mmol/L (22-29); Chloride 106 mmol/L (96-108); Creatinine Clr Calc Pharmacy 150.3; Estimated Glomerular Filt Rate > 60; Glucose Random 97 mg/dL (60-115); Potassium 4.1 mmol/L (3.3-5.1); Sodium 141 mmol/L (135-145)
--- NOTE | 2023-12-28 12:16 | P.EN_ITS ---
Event Note Date of Service: 12/28/23 Event Note: The patient expresses a desire to leave. He acknowledges not taking his medication for weeks, a timeframe corroborated by his mother and sister. He further admits to drug use. However, he is currently not confused, agitated, or restless. He remains alert and oriented to self, place, and time, stating that he came to the hospital due to leg pain. His family members at the bedside also confirm an improvement in his condition. There are no indications of suicidal i deation or homicidal ideation. During discussion, the patient mentions his dislike for medication. It was explained to him that the medications are intended to help him and keep him out of trouble. He agrees to restart taking the medications. Additionally, we discussed the importance of avoiding substance use and utilizing the support provided by the recovery team. He acknowledges that substance use has been a problem and expresses willingness to work on it. In a separate discussion with the patient's sister and mother, I advised them on the possibility of pursuing a Section [address] system in the future. Both patient's RN and a physician relations representative from CARE team were present during this conversation. Additionally, a Psychiatry consultation is requested for advise on restarting meds. Time Spent With Patient Time: Total time managing care of this patient today ____ minutes.
--- NOTE | 2023-12-28 12:32 | MHC.CM.PN ---
EMR REVIEWED. PER MD ROUNDS PATIENT IS NOT CLEARED FOR DC. AWAITING PSYCH CLEARANCE. NO CHANGES TO DC PLAN. CM WILL CONTINUE TO FOLLOW.
--- NOTE | 2023-12-28 12:41 | MHC.RECOVRN ---
Briefly met with pt to assess for withdrawal. Pt sitting on edge of bed, awake, alert, does not engage in conversation, appears comfortable. Pt denies withdrawal symptoms as well as questions or concerns for t/w. Nanette Puckett APRN, aware.
--- NOTE | 2023-12-28 12:42 | P.DS_ITS ---
DS: Providers Provider Date of Service: 12/28/23 Date of admission: 12/26/23 19:34 Primary care physician: Nanette Hernandez MD Consults: 12/26/23 15:42 Consult to Care Team Stat Comment: Reason for consultation: michelle 12/26/23 19:39 Addiction Medicine Routine Consulting Provider: Addiction Covering Reason for consultation: Cocaine abuse, noncompliant w/ psych meds Has provider been notified: No 12/28/23 08:17 Consult to Care Team Routine Comment: Reason for consultation: Schizophrenia, medically ready to discharge 12/28/23 12:11 Consult to Psychiatry Routine Consulting Provider: Psych Covering Reason for consultation: Schizophrenia DS: Diagnosis Discharge Diagnosis (1) Opiate abuse, continuous: Status: Acute (2) High anion gap metabolic acidosis: Status: Acute DS: Summary Hospital Course Hospital Course: admission hpi Chief Complaint: Legs pain Ricardo Irene is a 33 years old man with past medical history significant for schizophrenia and asthma who was brought to the emergency department via EMS after his sister called [employer] police Department. The patient was found to be barricaded in his room. He was found to be agitated, crying and quite anxious. He stated that he has not been taking his psychiatric medication including lithium. He admits to use of cocaine (inhaled; denies IV drug use). He has not right now complaining of anxiety, legs pain for 2 weeks and sweating. He complained of mild shortness of breath when denied chest pain, abdominal pain, nausea, , headache, dizziness vomiting or diarrhea. He denied alcohol abuse. In the ED, he was found to be tachycardic, tachypneic and hypertensive. His blood pressure is 154/101. Blood workup was remarkable for leukocytosis of 12.7. Hemoglobin and platelets are normal. Blood workup was remarkable for hyponatremia, 130. Bicarb and chloride low and anion gap is elevated. CK is 2405 --> 2015. Renal function is normal. LFTs are remarkable ulcer for slight elevation of AST. Urinalysis is normal except for positive ketones. Urine drug screen is positive for fentanyl, cocaine and marijuana. ED tx: Type 2 L bolus. Hospital course: * Acute rhabdomyolysis secondary to cocaine use and agitation. Admit to hospitalist service. Aggressive IV fluids. Continue to monitor total CK daily. * Agitation secondary to opiate withdrawal (urine positive for fentanyl). COWS. Start treatment with Ativan IV stat then PO as needed as well as clonidine. Patient might need treatment with methadone or buprenorphine. Addiction medicine consult placed. * High anion gap metabolic acidosis. Likely multifactorial: Ketosis and/or lactic acidosis. Check lactic acid. Recheck bicarb. Continue IV fluids. * Hyponatremia likely secondary to poor p.o. intake of fluids + profound sweating. Continue IV fluids. Continue to monitor sodium level. * Acute asthma exacerbation. Mild wheezing likely triggered by cocaine inhalation. Start treatment with Xopenex nebs as needed. Check CXR. * Cocaine addiction. Addiction medicine consult. * History of schizophrenia. Noncompliant with psychiatric meds. The patient expresses a desire to leave. He acknowledges not taking his medication for weeks, a timeframe corroborated by his mother and sister. He further admits to drug use. However, he is currently not confused, agitated, or restless. He remains alert and oriented to self, place, and time, stating that he came to the hospital due to leg pain. His family members at the bedside also confirm an improvement in his condition. There are no indications of suicidal ideation or homicidal ideation. During discussion, the patient mentions his dislike for medication. It was explained to him that the medications are intended to help him and keep him out of trouble. He agrees to restart taking the medications. Additionally, we discussed the importance of avoiding substance use and utilizing the support provided by the recovery team. He acknowledges that substance use has been a problem and expresses willingness to work on it. In a separate discussion with the patient's sister and mother, I advised them on the possibility of pursuing a Section [address] system in the future. Both patient's RN and a off premise service representative from CARE team were present during this conversation. Additionally, a Psychiatry consultation is requested for advise on restarting meds. Time Attestation Discharge Coordination Time (in mins): 50 Quality: Safe Use of Opioids Does Pt have an Active Cancer Diagnosis on the Problem List?: No Quality: Stroke Does the patient have a stroke diagnosis?: No Physical Exam Vital Signs: Vital Signs: Last Vital Signs Temp 97.1 F 12/28/23 07:19 Pulse 65 12/28/23 07:19 Resp 18 12/28/23 07:19 BP 125/81 12/28/23 07:19 Pulse Ox 98 12/28/23 07:19 O2 Del Method Room Air 12/28/23 07:19 BMI result Body Mass Index 28.0 DS: Data Data Completed and Pending Labs on day of discharge: Laboratory Results - last 24 hr 12/27/23 12/28/23 18:45 09:13 Sodium 141 Potassium 4.1 Chloride 106 Carbon Dioxide 29 Anion Gap 10 L BUN 5 L Creatinine 0.75 Estim Creat Clear Calc 150.3 Estimated GFR > 60 Random Glucose 97 Calcium 8.4 Total Creatine Kinase 700 H 369 H Discharge Plan Discharge Anticipated Discharge Date/Time: 12/28/23 12:28 Patient Disposition: Home, Self-Care Discharge Diagnosis: Rhabdomyolysis, Referrals: Nanette Wolfe MD [Primary Care Provider] - 1 Week Discharge Medications: New aripiprazole [Abilify] 10 mg tablet 10 mg PO DAILY Qty: 30 0RF lithium carbonate 150 mg capsule 150 mg PO BID Qty: 60 0RF Discontinued aripiprazole 20 mg tablet 1 tab PO DAILY lithium carbonate 600 mg capsule 1 cap PO BEDTIME lithium carbonate 300 mg tablet 1 tab PO BID Discharge Orders: Discharge Order (Routine); Ordered 12/28/23 Ordered By: Karan Pretty Diet: Advance to usual diet Activity on Discharge: As tolerated Stand Alone Forms: Patient Portal Discharge page Print Language: Finnish Care Plan Goals: recovery from rhabdomylosis, substance, and to be back on medication for mental health Health Concerns: rhabdomylosis substance use disorder Plan of Treatment: take all your medications as recommended and follow up with your doctor and therapist in a week avoid ilicit substances Assessment: see above
--- NOTE | 2023-12-28 13:19 | PC.NURSE ---
At ~11am pt began getting anxious about d/c plan, constantly coming out into hallway to ask RN when he can leave, asking to go smoke cigarette. Dr. Pretty notified and at bedside. CARE team and psych also evaluated pt and deemed appropriate for d/c. Pt educated extensively about importance restarting and being compliant with his psych meds which were sent to his pharmacy. Pt verbalized understanding. D/c home with mom and sister. Both IVs removed with catheter tip still intact, no s/s infection or bleeding noted.
--- NOTE | 2023-12-28 13:28 | MHC.CM.PN ---
Patient dc'd home self care before CM was able to meet with patient.
--- NOTE | 2023-12-28 13:32 | P.CNPS_ITS ---
History of Present Illness Date of Service: 12/28/23 Chief Complaint: Rhabdomyolysis Reason for Consult: schizophrenia Requesting physician: Karan Pretty Discussed with referring provider: Yes Sources of Information: patient interviewed and chart reviewed Additional Sources of Information: Patient's mother and sister. HPI Narrative: Patient is a 33 year old man with past medical history of schizophrenia and asthma who was brought to the emergency department via EMS after his sister called police Department. Psychiatric consult placed for: schizophrenia During consult assessment, pt's mother and sister were present for interview. Pt presents alert and oriented, calm and guarded. Patient reports he currently does not have any outpatient psychiatric providers but used to see a psychiatrist and therapist at [facility]. Pt reports not being medication compliant for the past 4 weeks, when asked why; pt did not have a reason. He reports using $2000 worth of cocaine over the past few days ; patient's sister reports, pt has a hx of family Section 35'ing him and hx of psychiatric inpatient hospitalizations(last hospitalization was 2 years ago at [facility]). Patient reports he has been on a waiting list for a psychiatric provider for the past 8 months. He currently denies SI/HI/VH/AH. Patient reports he does not want to go inpatient and would like to continue taking his medications outpatient. Patient's sister reports she plans on taking patient back to [facility] for psychiatric outpatient care; they are also considering Section 35'ing him. Patient reported he would call crisis if feeling unsafe. Past Psychiatric History: Per pt: Psychiatrist: Dr. Williamson- [facility] hx of multiple inpatient psychiatric hospitalizations (last inpatient stay was 2 years ago at [facility]) hx of being Section 35'd. denies hx of SIB/SA. Medical Evaluation Reviewed: Yes [facility] Medical History (Updated 12/28/23 @ 14:51 by Naomi Henry NP) Cocaine abuse Schizophrenia Asthma Family History: father- bipolar d/o Social History: lives with mother, single, 2 children who live with their mother, disability Substance History: Pt reports using $2000 worth of cocaine in a few days and smoking marijuana daily. Trauma History: denies Diagnostics Vital Signs (24Hr): Vital Signs - 24 hr 12/27/23 15:29 12/27/23 19:56 12/27/23 20:57 Temperature 97.4 F 97.2 F Pulse Rate 66 68 Respiratory Rate 20 20 16 Blood Pressure 125/74 127/74 Pulse Oximetry 99 99 Oxygen Delivery Method Room Air Room Air 12/28/23 02:54 12/28/23 03:01 12/28/23 03:55 Temperature 97.2 F Pulse Rate 68 Respiratory Rate 18 16 20 Blood Pressure 127/76 Pulse Oximetry 99 Oxygen Delivery Method Room Air 12/28/23 07:19 Temperature 97.1 F Pulse Rate 65 Respiratory Rate 18 Blood Pressure 125/81 Pulse Oximetry 98 Oxygen Delivery Method Room Air BMI result Body Mass Index 28.0 Labs 12/27/23 05:37 12/28/23 09:13 Labs: Laboratory Results - last 48 hr 12/26/23 12/26/23 12/26/23 15:58 18:19 22:01 WBC 12.7 H 8.1 RBC 4.54 L 4.08 L Hgb 14.1 12.8 L Hct 39.5 L 36.0 L MCV 87.0 88.2 MCH 31.1 31.4 MCHC 35.7 35.6 RDW 12.7 12.8 Plt Count 298 256 MPV 8.9 L 8.8 L Immature Gran % (Auto) 0.4 Neut % (Auto) 82.3 H Lymph % (Auto) 9.1 L [place] % (Auto) 7.9 Eos % (Auto) 0.1 Baso % (Auto) 0.2 Lymph # (Auto) 1.2 [place] # (Auto) 1.0 Eos # (Auto) 0.0 Baso # (Auto) 0.0 Abs Immat Gran (auto) 0.05 H Absolute Neuts (auto) 10.5 H Absolute Nucleated RBC 0.000 0.000 Nucleated RBC % (auto) 0.0 0.0 Sodium 130 L 134 L Potassium 4.1 4.1 Chloride 94 L 103 Carbon Dioxide 18 L 23 Anion Gap 22 H 12 BUN 15 12 Creatinine 1.05 0.76 Estim Creat Clear Calc 98.6 148.3 Estimated GFR > 60 > 60 Random Glucose 101 120 H Lactic Acid 0.8 Calcium 9.6 8.3 L D Magnesium 2.3 Total Bilirubin 1.0 AST 82 H ALT 29 Alkaline Phosphatase 85 Total Creatine Kinase 2405 H 2015 H Total Protein 8.3 H Albumin 4.5 Urine Color Yellow Urine Appearance Clear Urine pH 5.5 Ur Specific [place] 1.010 Urine Protein Negative Urine Glucose (UA) Negative Urine Ketones 80 Urine Blood Negative Urine Nitrite Negative Ur Leukocyte Esterase Negative Urine Opiates Screen Not Detected Urine Fentanyl Screen POSITIVE H Ur Barbiturates Screen Not Detected Ur Phencyclidine Scrn Not Detected Ur Amphetamines Screen Not Detected U Benzodiazepines Scrn Not Detected Urine Cocaine Screen POSITIVE H U Marijuana (THC) Screen POSITIVE H Ethyl Alcohol < 10 COVID-19 ([facility]) Negative COVID-19 Clin Com See Note 12/27/23 12/27/23 12/28/23 05:37 18:45 09:13 WBC 5.3 RBC 4.21 L Hgb 13.1 L Hct 37.5 L MCV 89.1 MCH 31.1 MCHC 34.9 RDW 13.0 Plt Count 247 MPV 9.1 L Immature Gran % (Auto) 0.4 Neut % (Auto) 65.8 Lymph % (Auto) 18.8 L [place] % (Auto) 14.0 H Eos % (Auto) 0.6 Baso % (Auto) 0.4 Lymph # (Auto) 1.0 L [place] # (Auto) 0.7 Eos # (Auto) 0.0 Baso # (Auto) 0.0 Abs Immat Gran (auto) 0.02 Absolute Neuts (auto) 3.5 Absolute Nucleated RBC 0.000 Nucleated RBC % (auto) 0.0 Sodium 137 141 Potassium 4.1 4.1 Chloride 104 106 Carbon Dioxide 25 29 Anion Gap 12 10 L BUN 9 5 L Creatinine 0.71 0.75 Estim Creat Clear Calc 158.8 150.3 Estimated GFR > 60 > 60 Random Glucose 111 97 Lactic Acid Calcium 8.6 8.4 Magnesium Total Bilirubin 0.4 AST 58 H ALT 24 Alkaline Phosphatase 67 Total Creatine Kinase 1324 H 700 H 369 H Total Protein 6.5 Albumin 3.5 Urine Color Urine Appearance Urine pH Ur Specific [place] Urine Protein Urine Glucose (UA) Urine Ketones Urine Blood Urine Nitrite Ur Leukocyte Esterase Urine Opiates Screen Urine Fentanyl Screen Ur Barbiturates Screen Ur Phencyclidine Scrn Ur Amphetamines Screen U Benzodiazepines Scrn Urine Cocaine Screen U Marijuana (THC) Screen Ethyl Alcohol COVID-19 ([facility]) COVID-19 Clin Com Imaging Radiology Impressions: ITS Impressions Chest X-Ray 12/26/23 20:05 IMPRESSION: Unremarkable examination. Mental Status Exam Mental Status Exam Narrative: Pt is alert and oriented; behavior is cooperative,calm, guarded; dressed in hospital attire; mood is described as good ; eye contact appropriate; Speech is normal rate, volume and prosody and not pressured; thought process is organized; Thought content is on discharge; otherwise pertinent to relevant topics and without any delusional content, paranoid ideations or grandiosity; denies SI/HI/VH/AH. Medications Allergies Allergies Allergy/AdvReac Type Severity Reaction Status Date / Time benztropine [From COGENTIN] Allergy Unknown UNKNOWN Verified 12/26/23 15:20 haloperidol [From HALDOL] AdvReac Severe JAW LOCK Verified 12/26/23 15:20 AND TONGUE SWELLING Assessment & Plan Assessment & Plan (1) Schizophrenia: Status: Acute Code(s): F20.9 - Schizophrenia, unspecified Plan Patient is a 33 year old man with past medical history of schizophrenia and asthma who was brought to the emergency department via EMS after his sister called police Department. Psychiatric consult placed for: schizophrenia Recommendation: Start: Abilify 10mg PO daily [place] 150mg PO BID Referral to outpatient prescriber and therapist Encourage NA meetings Encourage obtaining career coach Total time managing care of this patient today _30___ minutes. Patient educated on: diagnosis, medication risk/benefits and substance abuse Guardian/Caregiver educated on: diagnosis, medication risk/benefits and substance abuse Informed Consent: understands
== END 2023-12-28 13:25 | disposition home or self-care (01) | DRG 918 ==
LOC: HO.ED 18:24 → HO.EDOVER 20:08 → HO.S3 20:35
PROVIDERS: Physician Assistant; Admitting Provider Internal Medicine; Emergency Provider Student in an Organized Health Care Education/Training Program; PCP Internal Medicine; Visit Provider Internal Medicine
DX: T40.5X1A Poisoning by cocaine, accidental (unintentional), initial encounter (principal); J45.901 Unspecified asthma with (acute) exacerbation; E87.1 Hypo-osmolality and hyponatremia; E87.20 Acidosis, unspecified; F11.13 Opioid abuse with withdrawal; F14.20 Cocaine dependence, uncomplicated; F17.210 Nicotine dependence, cigarettes, uncomplicated; T79.6XXA Traumatic ischemia of muscle, initial encounter; Z71.6 Tobacco abuse counseling; F20.9 Schizophrenia, unspecified; Z91.148 Patient's other noncompliance with medication regimen for other reason; Z20.822 Contact with and (suspected) exposure to COVID-19; Z79.899 Other long term (current) drug therapy
CPT/HCPCS: 36415; 71045; 80048; 80053; 80307; 81003; 82550; 83605; 83735; 85025; 85027; 87635; 99285; J1650; J1885; J2060; J7120; S9485

== ENCOUNTER → 2023-12-26 19:34 | Outpatient (BNV) | payer MEDICARE, MEDICAID, SELFPAY | PROVIDERS: Admitting Provider Internal Medicine; Emergency Provider Student in an Organized Health Care Education/Training Program; PCP Internal Medicine; Visit Provider Internal Medicine | DX: E87.29 Other acidosis (principal); F11.10 Opioid abuse, uncomplicated | CPT/HCPCS: 99223; 99232; 99239; 99499 ==

== ENCOUNTER → 2023-12-26 19:34 | Outpatient (BNV) | payer MEDICARE, MEDICAID, SELFPAY | PROVIDERS: Admitting Provider Internal Medicine; Emergency Provider Student in an Organized Health Care Education/Training Program; PCP Internal Medicine; Visit Provider Registered Nurse | DX: F20.9 Schizophrenia, unspecified (principal) | CPT/HCPCS: 99222 ==

== ENCOUNTER 2023-12-29 23:19 | Emergency (ER) | payer MEDICARE, MEDICAID, SELFPAY ==
--- NOTE | 2023-12-30 | ECG_ITS ---
Test Reason : CHEST PAIN Blood Pressure : / mmHG Vent. Rate : 073 BPM Atrial Rate : 073 BPM P-R Int : 112 ms QRS Dur : 096 ms QT Int : 402 ms P-R-T Axes : 001 021 024 degrees QTc Int : 442 ms Normal sinus rhythm Normal ECG When compared to the previous EKG of No significant changes seen Referred By: Generic ED Physician Electronically Signed By:MARILEE HORN MD
[2023-12-30 00:24] VITALS: BP 134/77; PULSE 80; RESP 18; TEMP 36.8; O2SAT 95; BMI 25.8
[2023-12-30 00:36] LABS: MANUAL DIFF FLAG NO
[2023-12-30 00:38] LABS: Basophils Percent Auto 0.2 % (0-2); Eosinophils Percent Auto 0.2 % (0-4); Hematocrit 39.2 % (42.0-52.0); Hemoglobin 13.5 g/dl (14.0-18.0); Imm Gran Abs Auto 0.04 X10*3/uL (0.00-0.03); Imm Gran Pct Auto 0.4 % (0.0-0.4); Lymphocytes Absolute Auto 1.4 X10*3/uL (1.2-4.9); Mean Corpuscular HGB Conc 34.4 g/dl (31.0-36.0); Mean Corpuscular Hemoglobin 31.1 pg (27.0-33.0); Mean Corpuscular Volume 90.3 fL (80.0-98.0); Mean Platelet Volume 8.8 fL (9.4-12.4); Monocytes Percent Auto 9.7 % (2-11); Neutrophils Absolute Auto 7.6 x10*3/uL (2.0-8.3); Neutrophils Percent Auto 75.5 % (45-73); Platelet Count 330 X10*3/uL (160-400); Red Blood Count 4.34 X10*6/uL (4.60-5.80); Red Cell Distribution Width 12.7 % (11.0-16.0)
[2023-12-30 01:00] LABS: Alanine Aminotransferase 56 U/L (0-40); Alkaline Phosphatase 76 U/L (39-117); Anion Gap 14 (12-20); Aspartate Amino Transferase 62 U/L (5-37); Bilirubin Total 0.3 mg/dL (0.0-1.0); Blood Urea Nitrogen 6 mg/dL (9-16); Calcium 9.5 mg/dL (8.4-10.2); Carbon Dioxide 28 mmol/L (22-29); Chloride 101 mmol/L (96-108); Creatinine Clr Calc Pharmacy 126.2; Estimated Glomerular Filt Rate > 60; Glucose Random 111 mg/dL (60-115); Potassium 3.6 mmol/L (3.3-5.1); Sodium 139 mmol/L (135-145); Total Protein 7.7 g/dL (6.5-8.0)
[2023-12-30 01:12] LABS: Troponin-I High Sensitivity < 2.7 ng/L (<3.5-35.0)
[2023-12-30 01:14] LABS: Influenza A PCR NEGATIVE (Negative); Influenza B PCR NEGATIVE (Negative); Resp Syncy Virus RNA Qual PCR NEGATIVE (Negative); SARS COV2 PCR INHOUSE NEGATIVE (Negative)
--- NOTE | 2023-12-30 07:37 | PC.NURSE ---
no answer from waiting room; attempted to revital
== END 2023-12-30 08:10 | disposition left against medical advice (07) ==
PROVIDERS: Emergency Provider Emergency Medicine
DX: M79.671 Pain in right foot (principal); M79.672 Pain in left foot; R07.89 Other chest pain; Z11.52 Encounter for screening for COVID-19; Z20.822 Contact with and (suspected) exposure to COVID-19; Z79.899 Other long term (current) drug therapy
CPT/HCPCS: 0241U; 36415; 80053; 84484; 85025; 93005; 99283

== ENCOUNTER → 2023-12-30 00:03 | Outpatient (BNV) | payer MEDICARE, MEDICAID, SELFPAY | PROVIDERS: Emergency Provider Emergency Medicine; Visit Provider Internal Medicine Cardiovascular Disease | DX: R07.9 Chest pain, unspecified (principal) | CPT/HCPCS: 93010 ==

== ENCOUNTER 2024-07-29 21:19 | Emergency (ER) | payer MEDICARE, MEDICAID, SELFPAY ==
--- NOTE | ~2024-07-29 | XR_ITS ---
EXAMINATION: XR SHOULDER, LEFT CLINICAL INFORMATION: Possible dislocation COMPARISON: None available. TECHNIQUE: AP external rotation, Grashey, scapular Y, and axillary views of the left shoulder. 4 views FINDINGS: The bones and soft tissues are normal. No fracture. Glenohumeral and acromioclavicular alignment is anatomic with normal joint space. No abnormal soft tissue calcifications. XR/XR shoulder LT min 2V IMPRESSION: No fracture or dislocation. Electronically signed by: Vikash Humphreys MD 07/31/2024 01:53 PM ELLEN CEDILLO
[2024-07-29 21:21] VITALS: BP 144/82; PULSE 87; RESP 20; TEMP 37.1; O2SAT 100; BMI 25.1
--- NOTE | 2024-07-29 21:57 | PC.NURSE ---
t/w comopleted changeover with brother, patient whimpering seemingly about foot pain, also reporting shoulder pain (dislocation?) will point out to provider w presence of parts advisor put client in bed provided lilia marcella, ice packs for foot pain. no evidence of intentional injury besdies abraded foot skin and possible fungus on bilateral feet, patient moderately malodorous.
--- NOTE | 2024-07-29 22:04 | PC.NURSE ---
no contraband present on search
[2024-07-29 22:08] LABS: MANUAL DIFF FLAG NO
[2024-07-29 22:13] LABS: Basophils Percent Auto 0.4 % (0-2); Eosinophils Percent Auto 0.4 % (0-4); Hematocrit 37.2 % (42.0-52.0); Imm Gran Abs Auto 0.01 X10*3/uL (0.00-0.03); Imm Gran Pct Auto 0.2 % (0.0-0.4); Lymphocytes Absolute Auto 1.1 X10*3/uL (1.2-4.9); Lymphocytes Percent Auto 19.9 % (20-40); Mean Corpuscular HGB Conc 34.9 g/dl (31.0-36.0); Mean Corpuscular Volume 88.8 fL (80.0-98.0); Mean Platelet Volume 8.9 fL (9.4-12.4); Monocytes Absolute Auto 0.5 X10*3/uL (0.1-1.2); Monocytes Percent Auto 10.2 % (2-11); Neutrophils Absolute Auto 3.6 x10*3/uL (2.0-8.3); Neutrophils Percent Auto 68.9 % (45-73); Platelet Count 320 X10*3/uL (160-400); Red Blood Count 4.19 X10*6/uL (4.60-5.80); Red Cell Distribution Width 14.1 % (11.0-16.0); White Blood Count 5.3 X10*3/uL (4.8-10.8)
[2024-07-29 22:21] LABS: Lithium < 0.10 mmol/L (0.60-1.20)
[2024-07-29 22:30] LABS: Acetaminophen LAB < 3 mcg/mL (<30); Alanine Aminotransferase 43 U/L (0-40); Albumin Level 4.1 g/dL (3.5-5.0); Alkaline Phosphatase 82 U/L (39-117); Anion Gap 14 (12-20); Aspartate Amino Transferase 91 U/L (5-37); Bilirubin Total 0.3 mg/dL (0.0-1.0); Blood Urea Nitrogen 14 mg/dL (9-16); Calcium 9.2 mg/dL (8.4-10.2); Carbon Dioxide 26 mmol/L (22-29); Chloride 103 mmol/L (96-108); Creatinine Clr Calc Pharmacy 126.2; Estimated Glomerular Filt Rate > 60; Ethanol < 10 mg/dL; Glucose Random 126 mg/dL (60-115); Potassium 3.6 mmol/L (3.3-5.1); Salicylate < 5.0 mg/dL (15-30); Sodium 139 mmol/L (135-145); Total Protein 7.3 g/dL (6.5-8.0)
[2024-07-29 22:30] LABS: Amphetamine Screen Urine Not Detected (Not Detect); Barbiturates, Urine Not Detected (Not Detect); Benzodiazepines Screen Urine Not Detected (Not Detect); Buprenorphine Scr Not Detected (Not Detect); Cannabinoid Screen Urine POSITIVE (Not Detect); Cocaine Screen Urine POSITIVE (Not Detect); Fentanyl, urine POSITIVE (Not Detect); Methadone Screen, Urine Not Detected (Not Detect); Opiate Screen Urine POSITIVE (Not Detect); Oxycodone Screen Urine Not Detected (Not Detect); Phencyclidine Screen Urine Not Detected (Not Detect)
--- NOTE | 2024-07-30 00:19 | ED_ITS ---
HPI - General Adult General Chief complaint: ETOH/Substance Use Stated complaint: Detox Time Seen by Provider: 07/30/24 00:19 History of Present Illness ED Provider: Dwain BRAR narrative: The patient is a 33-year-old male with a history of schizophrenia and a history of substance use disorder. Apparently his family had not been able to locate him recently in the family went to a lot of trouble to find him. He has been homeless. He has been walking around a lot. He has been using crack cocaine. After searching for him for awhile his family found him and brought him to the emergency room. The patient has pain in both of his feet that he attributes to his frequent walking. He has also had pain in his shoulders but he could not tell me if he had had any particular injury. He has an abrasion to the skin of his forehead that he says is from a fall that he sustained 3 days ago. He says that he struck his forehead against pavement. There was no loss of consciousness. No fever, sweats, chills. No vomiting. Related Data Previous Rx's ?Medication ?Instructions ?Recorded aripiprazole 10 mg tablet (Abilify) 10 mg PO DAILY #30 tabs 12/28/23 lithium carbonate 150 mg capsule 150 mg PO BID #60 caps 12/28/23 Allergies Allergy/AdvReac Type Severity Reaction Status Date / Time benztropine [From COGENTIN] Allergy Unknown UNKNOWN Verified 07/29/24 21:32 haloperidol [From HALDOL] AdvReac Severe JAW LOCK Verified 07/29/24 21:32 AND TONGUE SWELLING Review of Systems 2 Review of Systems: Yes all other systems are reviewed and are negative [facility] Past Medical History Medical History (Updated 07/30/24 @ 00:56 by Choco Prakash MD) Opiate abuse, continuous Acute asthma exacerbation Depression Cocaine abuse Schizophrenia Asthma Social History Social History Alcohol intake: current Alcohol intake frequency: a few times a month Patient Tobacco Use Status: Current everyday Tobacco user Substance Use Type: Crack/Cocaine Advance Directives: No Advance Directives Information Provided: Yes Do you have a plan to hurt others: No Plan service: No Physical Exam ED Vital Signs: Vital Signs - 24 hr 07/29/24 21:21 07/30/24 00:37 Temperature 98.7 F 97.5 F Pulse Rate 87 72 Respiratory Rate 20 18 Blood Pressure 144/82 H 114/65 Pulse Oximetry 100 95 Oxygen Delivery Method Room Air Room Air BMI result Body Mass Index 25.1 Const Other: The patient was asleep in a darkened room. He woke fairly easily with verbal stimulation. He became very agitated when I turned on the light but was calm when the light was dim. He did not seem in any respiratory distress. He seemed quite disheveled. HENMT Other: There is an abrasion that looks subacute to the mid upper forehead. No raccoon eyes. No alcantar sign. He opens his mouth easily and Kwan. Mucous membranes are moist. Posterior pharynx is unremarkable. Eyes Other: Pupils are round and equal and reactive to light. Conjunctivae are mildly injected bilaterally. Extraocular movements are intact. Neck Other: Moving his neck easily. No JVD. Resp Effort & Inspection: normal respiratory effort Auscultation: clear to auscultation bilaterally Cardio Rate: regular rate Rhythm: regular rhythm Heart sounds: S1 normal heart sound present and S2 normal heart sound present GI Other: Abdomen is flat, soft, and nontender. Skin Other: The patient has an abrasion to the skin of his mid upper forehead. He has some areas of redness to the soles of both of his feet, mostly in the region of the metatarsals. Neuro Other: The patient seemed to be sleeping peacefully when I 1st entered the room. He awoke with verbal stimulation. He became agitated when I turned the light on but calmer when the light was dim. Pupils are round, equal and reactive to light. Extraocular movements are intact. The face is symmetrical. Speech is clear. He moves his extremities with normal strength and coordination. No focal neurological deficits. Extrem Other: The patient has some erythematous streaks to the plantar aspects of both feet in the region of the metatarsal pads. Both feet have good dorsalis pedis pulses. There is no generalized swelling to the feet. I was able to put both shoulders through a full range of motion without apparent discomfort. There is no deformity. Medications Administered Discontinued Medications Generic Name Dose Route Start Last Admin Trade Name Freq PRN Reason Stop Dose Admin Ibuprofen 400 mg 07/30/24 00:33 07/30/24 00:35 Ibuprofen 400 Mg Tablet PO 07/30/24 00:34 400 mg ONCE ONE Administration Lorazepam 2 mg 07/30/24 00:33 07/30/24 00:35 Lorazepam 1 Mg Tablet PO 07/30/24 00:34 2 mg ONCE ONE Administration Medical Decision Making Medical Decision Making [facility] Narrative: The patient is a 33-year-old male with a history of chronic schizophrenia and substance use disorder. The patient does not seem to be on any medications currently. The patient was hospitalized briefly at this hospital on the medical service because of mild rhabdomyolysis 7 months ago in 01/09/2024. At that time he was discharged on Abilify and lithium but it does not seem as though the patient has continued these medications. The psychiatric note from that hospitalization indicates that the patient has been psychiatrically hospitalized several times in the past and has also been the subject of a section 35 in the past as well. Apparently the patient's family has previously initiated a section 35. The patient is here at the family's investigation. The patient seems to be relatively cooperative. He admitted to crack cocaine use. He has tested positive for fentanyl and opioids as well. His CBC shows a white count of 5.3. Hemoglobin 13. Platelet count 320. Differential is unremarkable. Chemistries show unremarkable electrolytes and renal function. LFTs show mild transaminitis. Ethanol is negative. Overall the patient seems to be a disorganized chronic schizophrenic who has been homeless and walking a lot. His feet show signs of erythema to the metatarsal pads bilaterally that I think are likely signs of overuse injuries rather than acute infections. He has an abrasion to his forehead but I do not think he likely has any kind of an intracranial injury or skull fracture. He complained of shoulder pains but seems to have fairly benign shoulder exams bilaterally. My overall impression is that the patient is medically clear for evaluation by the care team. He will be given a dose of lorazepam and ibuprofen and placed in physician observation for evaluation by the care team. Lab Data 07/29/24 22:00 07/29/24 22:00 Labs: Lab Results 07/29/24 07/29/24 Range/Units 22:00 22:05 WBC 5.3 (4.8-10.8) X10*3/uL RBC 4.19 L (4.60-5.80) X10*6/uL Hgb 13.0 L (14.0-18.0) g/dl Hct 37.2 L (42.0-52.0) % MCV 88.8 (80.0-98.0) fL MCH 31.0 (27.0-33.0) pg MCHC 34.9 (31.0-36.0) g/dl RDW 14.1 (11.0-16.0) % Plt Count 320 (160-400) X10*3/uL MPV 8.9 L (9.4-12.4) fL Immature Gran % (Auto) 0.2 (0.0-0.4) % Neut % (Auto) 68.9 (45-73) % Lymph % (Auto) 19.9 L (20-40) % [place] % (Auto) 10.2 (2-11) % Eos % (Auto) 0.4 (0-4) % Baso % (Auto) 0.4 (0-2) % Lymph # (Auto) 1.1 L (1.2-4.9) X10*3/uL [place] # (Auto) 0.5 (0.1-1.2) X10*3/uL Eos # (Auto) 0.0 (0.0-0.4) X10*3/uL Baso # (Auto) 0.0 (0.0-0.2) X10*3/uL Abs Immat Gran (auto) 0.01 (0.00-0.03) X10*3/uL Absolute Neuts (auto) 3.6 (2.0-8.3) x10*3/uL Absolute Nucleated RBC 0.000 (0.0-0.012) X10*3/uL Nucleated RBC % (auto) 0.0 (0.0-0.2) /100WBC Sodium 139 (135-145) mmol/L Potassium 3.6 (3.3-5.1) mmol/L Chloride 103 (96-108) mmol/L Carbon Dioxide 26 (22-29) mmol/L Anion Gap 14 (12-20) BUN 14 (9-16) mg/dL Creatinine 0.82 (0.5-1.4) mg/dL Estim Creat Clear Calc 126.2 Estimated GFR > 60 Random Glucose 126 H (60-115) mg/dL Calcium 9.2 (8.4-10.2) mg/dL Total Bilirubin 0.3 (0.0-1.0) mg/dL AST 91 H (5-37) U/L ALT 43 H (0-40) U/L Alkaline Phosphatase 82 (39-117) U/L Total Protein 7.3 (6.5-8.0) g/dL Albumin 4.1 (3.5-5.0) g/dL Salicylates < 5.0 L (15-30) mg/dL Urine Opiates Screen POSITIVE H (Not Detect) Ur Buprenorphine Scrn Not Detected (Not Detect) ng/mL Ur Oxycodone Screen Not Detected (Not Detect) ng/mL Urine Methadone Screen Not Detected (Not Detect) ng/mL Urine Fentanyl Screen POSITIVE H (Not Detect) Acetaminophen < 3 (<30) mcg/mL Ur Barbiturates Screen Not Detected (Not Detect) Ur Phencyclidine Scrn Not Detected (Not Detect) Ur Amphetamines Screen Not Detected (Not Detect) U Benzodiazepines Scrn Not Detected (Not Detect) Garber < 0.10 L (0.60-1.20) mmol/L Urine Cocaine Screen POSITIVE H (Not Detect) U Marijuana (THC) Screen POSITIVE H (Not Detect) Ethyl Alcohol < 10 mg/dL Discharge Plan Discharge Clinical Impression: Schizophrenia, Substance use disorder, Homelessness Patient Disposition: Still a Patient Prescriptions: No Action aripiprazole [Abilify] 10 mg tablet 10 mg PO DAILY Qty: 30 0RF lithium carbonate 150 mg capsule 150 mg PO BID Qty: 60 0RF Print Language: Chinese
[2024-07-30] MEDS: Ibuprofen 400 MG TABLET PO (00:35)
[2024-07-30] MEDS: LORazepam 1 MG TABLET 2 MG PO (00:35)
[2024-07-30 00:37] VITALS: BP 114/65; PULSE 72; RESP 18; TEMP 36.4; O2SAT 95
--- NOTE | 2024-07-30 03:54 | MHC.CARE ---
Pt medicated and is sleeping. He will be seen by the CARE team in the morning.
[2024-07-30] MEDS: Ibuprofen 800 MG TABLET PO (13:08)
--- NOTE | 2024-07-30 15:11 | MHC.CARE ---
Attempted to meet with pt several times, pt unable to engage. Pt appears to be in withdrawal
--- NOTE | 2024-07-30 19:35 | PC.NURSE ---
patient appears to remain at rest presently respirations are even and unlabored paitent appears in no distress
[2024-07-30 20:48] VITALS: BP 124/72; PULSE 65; RESP 16; TEMP 37.1; O2SAT 99
[2024-07-31] MEDS: Ibuprofen 800 MG TABLET PO ×2 (01:40→10:09)
[2024-07-31] MEDS: LORazepam 1 MG TABLET 2 MG PO (01:40)
--- NOTE | 2024-07-31 10:31 | PHA.MEDREC ---
Addendum entered by Petar Smith RPh 07/31/24 10:35: Reviewed by [facility] Original Note: Pharmacy Consult ? Medication Reconciliation Pharmacy has completed the medication reconciliation. Reviewed med rec done by nursing.
[2024-07-31 13:43] VITALS: BP 143/87; PULSE 84; RESP 16; TEMP 36.6; O2SAT 98
--- NOTE | 2024-07-31 13:51 | PC.NURSE ---
Pt up to BR iwth steady gait. States he no longer needs a walker. Walker removed from bedroom.
[2024-07-31 14:20] VITALS: BP 143/87; PULSE 84; RESP 16; TEMP 36.6; O2SAT 98
--- NOTE | 2024-07-31 15:54 | MHC.CARE ---
MSU completed, pt d/c home. Pt declined services, given copy of safety plan. Dr. Irizarry consulted
== END 2024-07-31 14:23 | disposition home or self-care (01) ==
PROVIDERS: Emergency Provider Emergency Medicine
DX: F20.9 Schizophrenia, unspecified (principal); M79.672 Pain in left foot; M79.671 Pain in right foot; F14.10 Cocaine abuse, uncomplicated; F11.10 Opioid abuse, uncomplicated; S00.81XA Abrasion of other part of head, initial encounter; X58.XXXA Exposure to other specified factors, initial encounter; Z59.02 Unsheltered homelessness; J45.909 Unspecified asthma, uncomplicated; F17.210 Nicotine dependence, cigarettes, uncomplicated; Z79.899 Other long term (current) drug therapy; Y93.9 Activity, unspecified; Y92.9 Unspecified place or not applicable; Y99.9 Unspecified external cause status
CPT/HCPCS: 36415; 73030; 80053; 80143; 80178; 80179; 80307; 85025; 99284; 99285; S9485

== ENCOUNTER 2024-12-06 20:13 | Emergency (ER) | payer MEDICARE, MEDICAID, SELFPAY ==
--- NOTE | 2024-12-06 | ECG_ITS ---
Test Reason : OVERDOSE Blood Pressure : */* mmHG Vent. Rate : 66 BPM Atrial Rate : 66 BPM P-R Int : 108 ms QRS Dur : 96 ms QT Int : 396 ms P-R-T Axes : 37 38 41 degrees QTcB Int : 415 ms Sinus rhythm with short WA Otherwise normal ECG When compared with ECG of 30-Dec-2023 00:03, No significant change was found Referred By: Radha Irizarry Electronically Signed By: Hansel Schuster
--- NOTE | ~2024-12-06 | CT_ITS ---
CLINICAL HISTORY: fall and head injury CT head without contrast Comparison: CT/AK/SR - CT HEAD/BRAIN WO CON - 01/07/22 11:43 EDT Findings: No intra-axial mass, midline shift, hydrocephalus, or acute hemorrhage. No significant atrophy-like change or white matter disease. The visualized paranasal sinuses and mastoid air cells are normal. The orbits are within normal limits. No skull fracture. IMPRESSION: 1. No acute intracranial findings. This document has been electronically signed by: Gurvinder Mercado MD on 12/06/2024 22:54:48
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
[2024-12-06 20:37] VITALS: BP 125/91; BP 130/73; PULSE 118; PULSE 70; RESP 20; TEMP 37.2; O2SAT 100; O2SAT 98; BMI 25.6
--- NOTE | 2024-12-06 20:58 | MHC.EDTECH ---
patient changed over with security belongings in [facility] shelf 3.
--- NOTE | 2024-12-06 23:26 | PC.NURSE ---
Patient's brother Catarino requesting a phone call at [phone] when patient awake to inquire if patient would allow Catarino to visit him.
[2024-12-07 00:40] VITALS: BP 125/63; PULSE 67; RESP 20; TEMP 36.8; O2SAT 97
[2024-12-07 06:31] VITALS: BP 128/72; PULSE 57; RESP 13; TEMP 36.5; O2SAT 99
--- NOTE | 2024-12-07 08:14 | PC.NURSE ---
Spoke with pt's [id number] over the phone. family informed that I am unable to give medical information without his consent. family informed me that they were going to attempt to file a [id number] today. this information was passed on to the recovery team.
[2024-12-07 09:10] VITALS: BP 127/61; PULSE 72; RESP 20; O2SAT 97
--- NOTE | 2024-12-07 10:07 | PHA.MEDREC ---
Addendum entered by Shahana Orona juan 12/07/24 10:09: reviewed Original Note: Pharmacy Consult ? Medication Reconciliation Pharmacy has completed the medication reconciliation. Spoke with patient and he confirmed he is not taking any medications at this time.
[2024-12-07] MEDS: Buprenorphine HCL 8 MG TAB.SUBL 16 MG SUBLINGUAL (10:25)
--- NOTE | 2024-12-07 12:49 | MHC.RECOVRN ---
Check in with pt after receiving buprenorphine. Pt denies withdrawal symptoms after receiving medication. Pt would like to continue medication through the [facility] Denies questions or concerns. Spoke with pts brother, Catarino, on the phone who informed t/w he is currently at the [facility] obtaining a Sect 35. Catarino will call t/w back when it is active. Catarino aware pt is free to leave the ED whenever he would like.
--- NOTE | 2024-12-07 13:13 | MHC.RECOVRN ---
Received call from Catarino re:Sect 35. Catarino reports will be hearing the case around 1400. Catarino will call back with updates.
--- NOTE | 2024-12-07 14:32 | MHC.RECOVRN ---
Catarino called t/w and reported the corrugator machine operator has approved the Sect 35 and a warrant will be issued for pt. T/w was informed pt would be picked up within 1.5 hours. RN and provider aware.
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
[2024-12-07 15:26] VITALS: BP 118/60; PULSE 54; RESP 14; O2SAT 99
[2024-12-07 15:40] VITALS: BP 118/60; PULSE 54; RESP 14; TEMP 36.6; O2SAT 99
== END 2024-12-07 15:41 ==
PROVIDERS: Emergency Provider Emergency Medicine
DX: T40.1X1A Poisoning by heroin, accidental (unintentional), initial encounter (principal); R40.4 Transient alteration of awareness; Y92.9 Unspecified place or not applicable
CPT/HCPCS: 70450; 93005; 99285; J0571; S9485

== ENCOUNTER → 2024-12-06 20:33 | Outpatient (BNV) | payer MEDICARE, MEDICAID, SELFPAY | PROVIDERS: Emergency Provider Emergency Medicine; Visit Provider Internal Medicine Cardiovascular Disease | DX: T50.901A Poisoning by unspecified drugs, medicaments and biological substances, accidental (unintentional), initial encounter (principal) | CPT/HCPCS: 93010 ==

== ENCOUNTER → 2024-12-06 20:34 | Outpatient (BNV) | payer MEDICARE, MEDICAID, SELFPAY | PROVIDERS: Emergency Provider Emergency Medicine; Visit Provider Student in an Organized Health Care Education/Training Program | DX: S09.90XA Unspecified injury of head, initial encounter (principal); W19.XXXA Unspecified fall, initial encounter | CPT/HCPCS: 70450 ==

== ENCOUNTER 2025-02-24 04:05 | Emergency (ER) | payer MEDICARE, MEDICAID, SELFPAY ==
[2025-02-24 04:19] VITALS: BP 118/72; BP 123/62; PULSE 51; PULSE 52; RESP 16; TEMP 36.6; O2SAT 97; O2SAT 99; BMI 27.3
[2025-02-24 04:30] VITALS: BP 115/77; PULSE 58; RESP 16; O2SAT 96
--- NOTE | 2025-02-24 05:30 | ED_ITS ---
HPI - General Adult General Chief complaint: Allergic Reaction Stated complaint: ALLERGIC RXN/TONGUE SWELLING, [employer] CUSTODY Time Seen by Provider: 02/24/25 05:26 Source: patient and police Mode of arrival: EMS Limitations: no limitations History of Present Illness ED Provider: Dr. Dayan Acevedo HPI narrative: Patient comes to the emergency room police custody and EMS. It is unclear why jerica jarvis was brought to emergency room. Initially, patient told PD that he was having an allergic reaction, on arrival, patient states that he feels well, denies any itching, no difficulty breathing, no Rash, no tongue swelling, no foreign body sensation. Patient states that he feels completely normal. Patient admits that he has been using street drugs. No Narcan was Given prior to arrival. Related Data Home Medications ?Medication ?Instructions ?Recorded ?Confirmed No Known Home Meds 07/30/24 12/07/24 Allergies Allergy/AdvReac Type Severity Reaction Status Date / Time benztropine [From COGENTIN] Allergy Unknown UNKNOWN Verified 12/06/24 20:48 haloperidol [From HALDOL] AdvReac Severe JAW LOCK Verified 02/24/25 04:29 AND TONGUE SWELLING Review of Systems Review of Systems: Constitutional : No Weight loss, No Fever, No Chills, No Night Sweats, No Fatigue, No Malaise ENT/Mouth : No Hearing loss, No Ear Pain, No Nasal Congestion, No Sinus Pain, No Hoarseness, No sore throat, No Rhinorrhea, No Swallowing Difficulty Eyes: No Eye Pain, No Swelling, No Redness, No Foreign Body, No Discharge, No Vision Changes Cardiovascular : No Chest Pain, No SOB, No Dyspnea on Exertion, No Orthopnea, No Edema, No Palpitations Respiratory : No Cough, No Sputum, No Wheezing, No Smoke Exposure, No Dyspnea Gastrointestinal : No Nausea, No Vomiting, No Diarrhea, No Constipation, No abdominal Pain, No Hematochezia, No Melena Genitourinary : no irregular bleeding, No Dysuria, No Urinary Frequency, No Hematuria, No Urinary Incontinence, No Urgency, No Flank Pain, No Urinary Flow Changes, No Hesitancy Musculoskeletal : No joint pain, No Myalgias, No Joint Swelling Skin : No Skin Lesions, No rash Neuro : No Weakness, No Numbness, No Paresthesias, No Loss of Consciousness, No Dizziness, No Headache Psych : No Anxiety/Panic, No Depression, No SI/HI/AH/VH, Admits to polysubstance abuse, Heme/Lymph: No Bruising, No Bleeding,No Lymphadenopathy Endocrine : No Polyuria, No Polydipsia, No Temperature Intolerance PMF Past Medical History Medical History Opiate abuse, continuous Acute asthma exacerbation Depression Cocaine abuse Schizophrenia Asthma Social History Social History Unable to assess alcohol history related to: Unknown Alcohol intake: current Alcohol intake frequency: a few times a month Patient Tobacco Use Status: Current everyday Tobacco user Smoked in Last 30 Days: Yes Use of substances other than those prescribed or required for medical reasons: Yes Substance Use Type: Crack/Cocaine service: No Physical Exam ED Vital Signs: Vital Signs - 24 hr 02/24/25 04:19 02/24/25 04:30 Temperature 97.9 F Pulse Rate 52 58 Respiratory Rate 16 16 Blood Pressure 123/62 115/77 Pulse Oximetry 99 96 Oxygen Delivery Method Room Air Room Air BMI result Body Mass Index 27.3 Const Other: Appearance: Alert. Oriented X3. No acute distress. somnolent but easily arousable Eyes: Pupils equal, round and reactive to light. ENT: Pharynx normal. no lip swelling no tongue swelling, uvula midline no angioedema Neck: Normal inspection. Neck supple. No lymph nodes noted. No crepitus CVS: Normal heart rate and rhythm. Pulses normal. Normal S1 and S2 Respiratory: No respiratory distress. Breath sounds normal. No Wheezing. No rales Abdomen: Soft and nontender. No rigidity. No distention. Skin: Skin warm and dry. Normal skin color. Normal skin turgor. Extremities: No lower extremity edema. No Lacerations. No Rash Neuro: Oriented X 3. No motor deficit. No sensory deficit. Moving all extremities. No slurred speech. CN 2 through 12 grossly intact Psych: calm, cooperative, normal affect Medical Decision Making Medical Decision Making MDM Narrative: patient was brought to emergency room for alleged allergic reaction. However, patient states that he has no allergic reaction feels back to baseline. At this time, patient's physical exam is normal other than being a bit somnolent but easily arousable. Vitals stable patient ready to be discharged with police custody Discharge Plan Discharge Clinical Impression: Normal exam Patient Disposition: Home, Self-Care Instructions: Normal Exam (ED) Additional Instructions: Please follow-up with your primary care physician tomorrow. If you have any worsening or new symptoms, please return to the emergency room or call 911 Prescriptions: No Action No Known Home Meds Print Language: [place]
[2025-02-24 05:42] VITALS: BP 130/63; PULSE 54; RESP 17; TEMP 36.5; O2SAT 100
== END 2025-02-24 05:46 | disposition home or self-care (01) ==
PROVIDERS: Emergency Provider Emergency Medicine
DX: R22.1 Localized swelling, mass and lump, neck (principal); F14.90 Cocaine use, unspecified, uncomplicated; T78.40XA Allergy, unspecified, initial encounter; T50.905A Adverse effect of unspecified drugs, medicaments and biological substances, initial encounter; X58.XXXA Exposure to other specified factors, initial encounter; Y92.9 Unspecified place or not applicable
CPT/HCPCS: 99284